=== PATIENT | male | born 1945 | race Caucasian/White ===

== ENCOUNTER 2016-06-22 16:29 | Emergency (ER) | payer BC, MEDICARE ==
[~2016-06-22] VITALS: Ht 167.6 cm; Wt 49.2 kg
[~2016-06-22 16:29] MED LIST: ADAL40KI INJ; ASPI325T PO; AZAT50TA21 PO; CALC-191 PO; HYDR-4246 PO; IRON18TA PO; MULT-806 PO; OMEP20CA10 PO; OSEL75CA PO; POTA20LI4 PO; SULF500T8 PO
--- OUTSIDE RECORDS SUMMARY | 2016-06-22 16:37 | XMS REPORT | Continuity of Care Document ---
Author Author [facility] Organization [facility] Address Unknown Phone Unavailable Allergies Active Description Code Type Severity Reaction Onset Reported/Identified Relationship to Patient Clinical Status Yes No Known Medication Allergies NKMA N/A N/A 09/17/2013 Medications Problems Procedures Results Test Result Range Comprehensive Metabolic Panel (CMP) - 09/24/15 10:25 Albumin 3.6 g/dL 3.4-4.8 Alkaline Phosphatase 58 U/L 40-150 ALT (SGPT) 13 U/L 0-55 Anion Gap 6 NA 3-20 AST (SGOT) 17 U/L 5-34 Bilirubin Total 0.3 mg/dL 0.2-1.2 BUN 15 mg/dL 8-26 Calcium 8.4 mg/dL 8.9-10.5 Chloride 105 mEq/L 99-111 CO2 29 mEq/L 23-31 Creatinine 0.97 mg/dL 0.72-1.25 Globulin 2.2 g/dL 1.8-4.0 Glucose 102 mg/dL 70-99 Potassium 3.9 mEq/L 3.5-5.2 Protein 5.8 g/dL 6.2-8.1 Sodium 140 mEq/L 135-144 eGFR - 09/24/15 10:25 eGFR >60 mL/min >60 CBC With Platelet and Differential - 09/24/15 10:25 Absolute Basophils 0.01 10*3 0.00-0.20 Absolute Eosinophils 0.01 10*3 0.00-0.50 Absolute Lymphocytes 1.40 10*3 0.80-3.30 Absolute Monocytes 0.87 10*3 0.30-1.00 Absolute Neutrophils 4.18 10*3 1.90-7.00 Basophils 0 % 0-2 Differential Scanned Slide NA Eosinophils 0 % 0-4 HCT 36.6 % 42.0-52.0 HGB 12.3 g/dL 14.0-18.0 Immature Granulocytes 1.1 % 0.0-1.0 Lymphocytes 21 % 20-46 Macrocytes Present NA MCH 36.4 pg 27.0-32.0 MCHC 33.6 g/dL 32.0-36.0 MCV 108.3 fL 82.0-99.0 Monocytes 13 % 4-11 MPV 9.6 fL 8.8-14.8 Neutrophils 64 % 51-75 Platelet Count 206 K/uL 150-400 RBC 3.38 10*6/uL 4.60-6.20 RDW 14.2 % 11.5-14.5 WBC 6.5 K/uL 4.8-10.8 CBC With Platelet and Differential - 05/07/16 05:41 HCT 35.6 % 42.0-52.0 HGB 11.7 g/dL 14.0-18.0 MCH 35.7 pg 27.0-32.0 MCHC 32.9 g/dL 32.0-36.0 MCV 108.5 fL 82.0-99.0 MPV 9.8 fL 9.4-12.3 Platelet Count 228 K/uL 150-400 RBC 3.28 10*6/uL 4.60-6.20 RDW 13.9 % 11.5-14.5 WBC 8.8 K/uL 4.8-10.8 Phosphorus - 05/07/16 05:41 Phosphorus 2.1 mg/dL 2.4-4.7 Magnesium - 05/07/16 05:41 Magnesium 1.8 mg/dL 1.8-2.5 Comprehensive Metabolic Panel (CMP) - 05/07/16 05:41 Albumin 3.0 g/dL 3.5-4.8 Alkaline Phosphatase 59 U/L 26-104 ALT (SGPT) 10 U/L 17-63 Anion Gap 6 NA 3-20 AST (SGOT) 18 U/L 15-41 Bilirubin Total 0.6 mg/dL 0.2-1.2 BUN 12 mg/dL 4-20 Calcium 8.3 mg/dL 8.6-10.0 Chloride 106 mEq/L 99-109 CO2 25 mEq/L 22-32 Creatinine 1.15 mg/dL 0.64-1.27 Globulin 3.2 g/dL 1.9-4.3 Glucose 126 mg/dL 70-100 Potassium 3.9 mEq/L 3.6-5.1 Protein 6.2 g/dL 6.1-7.9 Sodium 137 mEq/L 136-144 eGFR - 05/07/16 05:41 eGFR >60 NA >60 Encounters ACCT No. Visit Date/Time Discharge Status Pt. Type Provider Facility Loc./Unit Complaint [id number] 05/17/2016 14:31:00 2016 23:59:00 DIS Outpatient Husam Arriaza [facility] F/U - [place]OHNS [id number] 12/08/2015 13:51:00 2015 23:59:00 DIS Outpatient Tatyana Brower L [facility] 1 WEEK F/U [id number] 11/18/2015 13:58:00 2015 23:59:00 DIS Outpatient Husam Arriaza [facility] demond [id number] 09/24/2015 09:18:00 2015 23:59:00 DIS Outpatient Tariq Benitez [facility] nilson [id number] 06/05/2015 12:45:00 2015 23:59:00 DIS Outpatient Jason Zamora B [facility] 12 inj [id number] 05/08/2015 13:22:00 2015 23:59:00 DIS Outpatient Deleon, Vasu E [facility] vitamin B 12 inj [id number] 03/06/2015 12:47:00 2014 23:59:00 DIS Outpatient Deleon, Vasu E [facility] Vitamin B 12 inj [id number] 02/06/2015 12:48:00 2014 23:59:00 DIS Outpatient Deleon, Vasu E [facility] Vitamin B 12 inj [id number] 01/02/2015 12:47:00 2014 23:59:00 DIS Outpatient Deleon, Vasu E [facility] vitamin B 12 inj [id number] 12/09/2014 11:44:00 2014 23:59:00 DIS Outpatient Deleon, Vasu E [facility] Vitamin B 12 inj [id number] 11/07/2014 12:49:00 2014 23:59:00 DIS Outpatient Deleon, Vasu E [facility] Vitamin B 12 inj [id number] 11/05/2014 08:53:00 2014 23:59:00 DIS Outpatient Deleon, Vasu E [facility] ABDOMINAL SORENESS [id number] 10/29/2014 14:09:00 2014 23:59:00 DIS Outpatient Deleon, Vasu E [facility] ABDOMINAL PAIN AND DARK STOOLS [id number] 10/01/2014 12:49:00 2014 23:59:00 DIS Outpatient Deleon, Vasu E [facility] Vitamin B 12 inj [id number] 04/25/2014 12:47:00 2014 23:59:00 DIS Outpatient Deleon, Vasu E [facility] Vitamin B 12 inj [id number] 04/23/2014 14:12:00 2014 23:59:59 CLS Outpatient Simon Cassidy [facility] colonoscopy consult [id number] 04/01/2014 14:57:00 2013 23:59:00 DIS Outpatient Deleon, Vasu E [facility] Vitamin B 12 inj [id number] 02/26/2014 12:59:00 2013 23:59:00 DIS Outpatient Deleon, Vasu E [facility] From IDX: VITAMIN B 12 INJ [id number] 05/06/2016 19:12:00 Document Registration [id number] 11/28/2015 05:35:00 Document Registration [id number] 04/10/2015 13:07:00 ACT Outpatient Deleon, Vasu E [facility] Vitamin B 12 inj [id number] 03/17/2015 09:54:00 ACT Outpatient Deleon, Vasu E [facility] 3rd Reclast infusion [id number] 09/05/2014 15:26:00 Document Registration [id number] 08/01/2014 12:52:00 Document Registration [id number] 07/22/2014 12:48:00 Document Registration [id number] 07/04/2014 12:44:00 Document Registration [id number] 05/22/2014 10:03:00 Document Registration [id number] 03/07/2014 15:09:00 Document Registration
--- OUTSIDE RECORDS SUMMARY | 2016-06-22 16:37 | XMS REPORT | Continuity of Care Document ---
Author Author [facility] Organization [facility] Address Unknown Phone Unavailable Care Team Providers Care Military Professional Name Role Phone MADHAVI DIA DO Primary Care Physician [phone] Insurance Providers Guarantor Abimael Zeng Address [address] [place] [address] Email [email or web address] Payer Medicare Part A Only Policy Number [id number] Subscriber's Name Abimael Zeng Relationship 18 Self Effective Date 12 Payer [place] Other Policy Number [id number] Subscriber's Name Ninfa Zeng Relationship 01 Spouse Group Number [id number] Chief Complaint and Reason for Visit Chief Complaint Cough,Fever,Flu,URI Reason for Visit [id number] Problems Active Problems Medical Problem Onset Date Status exacerbation of Crohn's Unknown Acute Past Problems Medical Problem Onset Date Abdominal pain Unknown Influenza B Unknown Medications Current Home Medications Medication Dose Units Route Directions Days Qty Instructions Start Date Adalimumab (Humira) 40 Mg/0.8 Ml/Kit Syringe 40 Mg Injection Weekly 04/22/16 Aspirin 325 Mg Tablet 1 Tab Oral Daily 30 Tablet 06/08/16 Azathioprine 50 Mg Tablet 100 Mg Oral Daily 05/30/12 Calcium Carbonate/Vitamin D3 (Calcium + Vitamin D Tablet) 1 Each Tablet 1 Tab Oral Daily 04/22/16 Hydrocodone/Acetaminophen (Immaculata 5-325 Tablet) 5-325 Tablet 1 Tab Oral Every 4-6 Hours as needed for Pain 20 Tablet 03/20/16 Iron 18 Mg Tablet 06/08/16 Multivitamins (Multivitamin) 1 Tab Tablet 1 Tab Oral Daily Omeprazole 20 Mg Capsule.dr 20 Mg Oral Daily 03/20/16 Oseltamivir Phosphate (Tamiflu) 75 Mg Capsule 75 Mg Oral Twice A Day 5 Days [address] aVrghese Irby [facility] [address] [phone] 06/08/16 Potassium Chloride 20 Meq/15 Ml Liquid 20 Meq Oral Daily 03/20/16 Sulfasalazine 500 Mg Tablet 1,000 Mg Oral Twice A Day 04/22/16 Past Home Medications Medication Directions Ordered Status Adalimumab (Humira) 40 Mg/0.8 Ml/Kit Kit, 40 Mg Sub-Q 11/24/09 Discontinued Azathioprine 50 Mg Tablet, 50 Mg Oral Daily 11/24/09 Discontinued Ferrous Gluconate 225 ( 27 )Mg Tablet, 225 ( Oral Daily 11/24/09 Discontinued Fluoride Ion/Multivitamins (Multi Vitamins W/Fl 1 Mg Tab) 1 Mg Tab.chew, 1 Mg Oral Daily 11/24/09 Discontinued Omeprazole (Prilosec) 20 Mg Tablet.dr, 20 Mg Oral Daily 11/24/09 Discontinued Potassium Chloride (K-Dur) 20 Meq Tab.prt.sr, 20 Meq Oral 3 Tabs Daily Discontinued Prednisone 5 Mg Tablet, 35 Mg Oral Daily 05/30/12 Discontinued Prednisone 10 Mg Tablet, 10 Mg Oral Daily 11/24/09 Discontinued Prednisone 5 Mg/5 Ml Solution, 40 Mg Oral Daily 11/24/09 Discontinued Tpn , Intraven D-X12hrs 01/27/12 Discontinued Yeast Infection Med , 2 Tab Oral Daily 04/20/11 Discontinued Social History Social History Problem Response Recorded Date/Time Onset Date Status Chewing Tobacco Status No 09/14/2013 4:33am Not Applicable Not Applicable Hx Substance Use No 05/06/2016 3:59pm Not Applicable Not Applicable Hx Alcohol Use No 05/06/2016 3:59pm Not Applicable Not Applicable Has the pt used tobacco in the last 12 months No 12/16/2012 4:38am Not Applicable Not Applicable Tobacco Usage none 09/14/2013 5:11am Not Applicable Not Applicable Query Response Start Date Stop Date Smoking Status Never smoker Hospital Discharge Instructions No hospital discharge instructions. Plan of Care Discharge Date 06/08/16 4:53pm Disposition 01 DISCHARGED HOME, SELF-CARE Condition at Discharge Stable Instructions/Education Provided Influenza (ED) Prescriptions See Medication Section Referrals MADHAVI DIA DO Address: [address] [facility] [place] [phone] Functional Status No functional status results. Allergies, Adverse Reactions, Alerts No known allergies. Immunizations Query Response on File Recorded Date/Time Hx Influenza Vaccination Y JAN 2012 09/14/13 4:33am Hx Pneumococcal Vaccination Y 201009/14/13 4:33am Hx Influenza Vaccination Y JAN 2012 09/14/13 4:33am Influenza Vaccine Hx 201506/08/16 4:25pm Vital Signs Acute Vital Signs Vital Response Date/Time Temperature (Fahrenheit) 99.3 deg F (96.8 - 99.1) 06/08/2016 4:27pm Temperature (Calculated Celsius) 37.95386 degrees C (36.0 - 37.3) 06/08/2016 4:27pm Pulse Rate (adult) 115 bpm (60 - 100) 06/08/2016 4:27pm Respiratory Rate 18 breaths/min (10 - 20) 06/08/2016 4:27pm O2 Sat by Pulse Oximetry 96 % (90 - 100) 06/08/2016 4:27pm Blood Pressure 115/65 mm Hg 06/08/2016 4:27pm Height (Feet) 5 feet 05/06/2016 3:40pm Height (Inches) 66.00 inches 06/08/2016 4:27pm Weight (Kilograms) 49.200 kg 06/08/2016 4:27pm Body Mass Index (BMI) 17.0 06/08/2016 4:27pm Results Laboratory Results Test Name Result Units Flags Reference Collection Date/Time Result Date/ Time Comments White Blood Count 11.0 T/MM3 4.5-11.0 05/06/2016 4:06pm 05/06/2016 4: 31pm Red Blood Count 3.66 M/MM3 L 4.50-5.90 05/06/2016 4:06pm 05/06/2016 4: 31pm Hemoglobin 13.1 GM/DL L 13.5-17.5 05/06/2016 4:06pm 05/06/2016 4:31pm Hematocrit 39.0 % L 41-53 05/06/2016 4:06pm 05/06/2016 4:31pm Mean Corpuscular Volume 106.6 UM3 H 80-100 05/06/2016 4:06pm 05/06/2016 4:31pm Mean Corpuscular Hemoglobin 35.8 UUG H 26-34 05/06/2016 4:06pm 2016 4:31pm Mean Corpuscular Hemoglobin Concent 33.6 GM/DL 31-37 05/06/2016 4:06pm 05/06/2016 4:31pm RDW Standard Deviation 49.1 FL 36.9-50.2 05/06/2016 4:06pm 05/06/2016 4 :31pm Platelet Count 272 T/MM3 130-400 05/06/2016 4:06pm 05/06/2016 4:31pm Mean Platelet Volume 9.6 UM3 9.4-12.4 05/06/2016 4:06pm 05/06/2016 4: 31pm Neutrophils (%) (Auto) 78.0 % H 33-66 05/06/2016 4:06pm 05/06/2016 4: 31pm Lymphocytes (%) (Auto) 14.8 % L 23-45 05/06/2016 4:06pm 05/06/2016 4: 31pm Monocytes (%) (Auto) 6.4 % 0-9.0 05/06/2016 4:06pm 05/06/2016 4:31pm Eosinophils (%) (Auto) 0.1 % 0-4 05/06/2016 4:06pm 05/06/2016 4:31pm Basophils (%) (Auto) 0.2 % 0-2 05/06/2016 4:06pm 05/06/2016 4:31pm Immature Granulocyte % (Auto) 0.5 % 0.0-0.5 05/06/2016 4:06pm 2016 4:31pm Absolute Neutrophils (auto) 8.6 T/MM3 H 1.8-7.7 05/06/2016 4:06pm 2016 4:31pm Absolute Lymphocytes (auto) 1.6 T/MM3 1-4.8 05/06/2016 4:06pm 2016 4:31pm Absolute Monocytes (auto) 0.7 T/MM3 0-0.8 05/06/2016 4:06pm 05/06/2016 4:31pm Absolute Eosinophils (auto) 0.0 T/MM3 0-0.5 05/06/2016 4:06pm 2016 4:31pm Absolute Basophils (auto) 0.0 T/MM3 0-0.2 05/06/2016 4:06pm 05/06/2016 4:31pm Absolute Immature Granulocyte (auto 0.05 T/MM3 H 0.00-0.03 05/06/2016 4: 06pm 05/06/2016 4:31pm Icterus Index < 2 0-7 05/06/2016 4:06pm 05/06/2016 4:35pm Chemistry Specimen Hemolysis 23 0-25 05/06/2016 4:06pm 05/06/2016 4: 35pm 0-25: Specimen Exhibited No Hemolysis. Turbidity < 20 0-20 05/06/2016 4:06pm 05/06/2016 4:35pm Sodium Level 141 MEQ/L 134-144 05/06/2016 4:06pm 05/06/2016 4:35pm Potassium Level 4.0 MEQ/L 3.6-5 05/06/2016 4:06pm 05/06/2016 4:35pm Chloride Level 106 MEQ/L 98-107 05/06/2016 4:06pm 05/06/2016 4:35pm Carbon Dioxide Level 27 MEQ/L 22-30 05/06/2016 4:06pm 05/06/2016 4: 35pm Anion Gap 8 MEQ/L 5-15 05/06/2016 4:06pm 05/06/2016 4:35pm Blood Urea Nitrogen 15.0 MG/DL 9-20 05/06/2016 4:06pm 05/06/2016 4: 35pm Creatinine 1.0 MG/DL 0.8-1.5 05/06/2016 4:06pm 05/06/2016 4:35pm BUN/Creatinine Ratio 15 RATIO 6-26 05/06/2016 4:06pm 05/06/2016 4:35pm Glomerular Filtration Rate Calc 74 05/06/2016 4:06pm 05/06/2016 4: 35pm Glucose Level 115 MG/DL H 75-110 05/06/2016 4:06pm 05/06/2016 4:35pm Calculated Osmolality 273 MOSM/KG 261-280 05/06/2016 4:06pm 05/06/2016 4:35pm Calcium Level 9.3 MG/DL 8.4-10.2 05/06/2016 4:06pm 05/06/2016 4:35pm Total Bilirubin 0.60 MG/DL 0.20-1.30 05/06/2016 4:06pm 05/06/2016 4: 35pm Alkaline Phosphatase 72 U/L 38-126 05/06/2016 4:06pm 05/06/2016 4:35pm Total Protein 7.5 G/DL 6.3-8.2 05/06/2016 4:06pm 05/06/2016 4:35pm Albumin 3.9 G/DL 3.5-5.0 05/06/2016 4:06pm 05/06/2016 4:35pm Globulin 3.6 G/DL 2.4-3.6 05/06/2016 4:06pm 05/06/2016 4:35pm Albumin/Globulin Ratio 1.1 RATIO 1.1-2.2 05/06/2016 4:06pm 05/06/2016 4 :35pm Aspartate Amino Transf (AST/SGOT) 25 U/L 17-59 05/06/2016 4:06pm 2016 4:35pm Alanine Aminotransferase (ALT/SGPT) 24 U/L 21-72 05/06/2016 4:06pm 06/2016 4:35pm Lipase 262 U/L 23-300 05/06/2016 4:06pm 05/06/2016 4:35pm Urine Collection Type CLEANCATCH-MIDSTREAM 05/06/2016 5:11pm 2016 5:22pm Urine Color YELLOW YELLOW 05/06/2016 5:11pm 05/06/2016 5:22pm Urine Turbidity CLEAR CLEAR 05/06/2016 5:11pm 05/06/2016 5:22pm Urine Specific [place] >=1.030 H 1.015-1.025 05/06/2016 5:11pm 2016 5:22pm Urine pH 5.5 5.0-8.0 05/06/2016 5:11pm 05/06/2016 5:22pm Urine Leukocyte Esterase NEGATIVE NEGATIVE 05/06/2016 5:11pm 2016 5:22pm Urine Nitrite NEGATIVE NEGATIVE 05/06/2016 5:11pm 05/06/2016 5:22pm Urine Protein NEGATIVE NEGATIVE 05/06/2016 5:11pm 05/06/2016 5:22pm Urine Glucose (UA) NEGATIVE NEGATIVE 05/06/2016 5:11pm 05/06/2016 5: 22pm Urine Ketones NEGATIVE NEGATIVE 05/06/2016 5:11pm 05/06/2016 5:22pm Urine Urobilinogen 0.2 EU/DL NORMAL 05/06/2016 5:11pm 05/06/2016 5: 22pm Urine Bilirubin NEGATIVE NEGATIVE 05/06/2016 5:11pm 05/06/2016 5: 22pm Urine Blood NEGATIVE NEGATIVE 05/06/2016 5:11pm 05/06/2016 5:22pm Urinalysis Comment MICROSCOPIC NOT IND. 05/06/2016 5:11pm 2016 5:22pm Influenza Type A Antigen NEGATIVE NEGATIVE 06/08/2016 4:41pm 2016 4:45pm Negative for Flu A protein antigen. Assay sensitivity is 90%. Influenza Type B Antigen POSITIVE H NEGATIVE 06/08/2016 4:41pm 2016 4:45pm If clinical symptoms do not support these results, consider ordering the "Respiratory Panel, PCR". Procedures Procedure Status Date Provider(s) X-ray exam of abdomen Completed 03/20/16 Comprehen metabolic panel Completed 03/20/16 Complete cbc w/auto diff wbc Completed 03/20/16 Hydrate iv infusion add-on Completed 03/20/16 Ther/proph/diag inj iv push Completed 03/20/16 Tx/pro/dx inj new drug addon Completed 03/20/16 Emergency dept visit Completed 03/20/16 [id number]"INJECTION, ONDANSETRON HYDROCHLORIDE, PER 1 MG" Completed 03/20/16 PREDNISONE, 10 MG TAB Completed 03/20/16 X-ray exam of abdomen Completed 04/22/16 Ct abd & pelv w/contrast Completed 04/22/16 Comprehen metabolic panel Completed 04/22/16 Assay of lipase Completed 04/22/16 Complete cbc w/auto diff wbc Completed 04/22/16 Hydrate iv infusion add-on Completed 04/22/16 Ther/proph/diag inj iv push Completed 04/22/16 Tx/pro/dx inj same drug stand grinder Completed 04/22/16 Emergency dept visit Completed 04/22/16 [id number]"INFUSION, NORMAL SALINE SOLUTION , 1000 CC" Completed 04/22/16 [id number]"INFUSION, NORMAL SALINE SOLUTION , 250 CC" Completed 04/22/16 [id number]"LOW OSMOLAR CONTRAST MATERIAL, 300-399 MG/ML IODINE C Completed Comprehen metabolic panel Completed 05/06/16 Urinalysis auto w/o scope Completed 05/06/16 Assay of lipase Completed 05/06/16 Complete cbc w/auto diff wbc Completed 05/06/16 Electrocardiogram tracing Completed 05/06/16 Hydrate iv infusion add-on Completed 05/06/16 Ther/proph/diag inj iv push Completed 05/06/16 Tx/pro/dx inj new drug addon Completed 05/06/16 Emergency dept visit Completed 05/06/16 [id number]"INJECTION, ONDANSETRON HYDROCHLORIDE, PER 1 MG" Completed 05/06/16 [id number]"INFUSION, NORMAL SALINE SOLUTION , 1000 CC" Completed 05/06/16 Encounters Encounter Location Arrival/Admit Date Discharge/Depart Date Attending Provider Departed Emergency Room [facility] 06/08/16 4:14pm 06/08/16 4: 53pm FERNANDO MARTINEZ APRN Departed Emergency Room [facility] 05/06/16 3:39pm 05/06/16 6: 36pm DONNIE MELCHOR DO Departed Emergency Room [facility] 04/22/16 2:28pm 04/22/16 7: 00pm KAROLINA DOSS MD Departed Emergency Room [facility] 03/20/16 8:42pm 03/20/16 11: 32pm MADHAVI CHEN MD Recent Diagnosis
--- OUTSIDE RECORDS SUMMARY | 2016-06-22 16:38 | XMS REPORT | Continuity of Care Document ---
Author Author [facility] Organization [facility] Address Unknown Phone Unavailable Support Name Relationship Address Phone JUDITH DALTON MD Caregiver [address] [place] [address] DR YANG [place] [phone] NINFA ZENG Next Of Kin [address] [place], [place] [id number] Insurance Providers Payer Name Policy Number Subscriber Name Relationship [employer] Other [id number] Ninfa Zeng 01 Spouse Medicare Part A Only [id number] Abimael Zeng 20 Self Problems Medical Problems Problem Onset Date Status exacerbation of Crohn's Unknown Active Medications Medication Dose Route Sig Days/Qty Instructions Order Date Discontinued Date Status Omeprazole 20 Mg PO DAILY 11/24/09 01/27/12 Discontinued Azathioprine 50 Mg PO DAILY 11/24/09 01/27/12 Discontinued Prednisone 10 Mg PO DAILY 2 Qty 11/24/09 01/27/12 Discontinued Prednisone 40 Mg PO DAILY 11/24/09 01/27/12 Discontinued Sulfasalazine 1,000 Mg PO TWICE A DAY 11/24/09 Active Ferrous Gluconate 225 ( PO DAILY 11/24/09 05/30/12 Discontinued Calcium Carbonate/Vitamin D3 1 Udtab PO DAILY 11/24/09 Active Fluoride Ion/Multivitamins 1 Mg PO DAILY 11/24/09 05/06/12 Discontinued Adalimumab 40 Mg SQ 11/24/09 01/27/12 Discontinued Potassium Chloride 20 Meq PO 3 TABS DAILY 04/20/11 01/27/12 Discontinued [Yeast Infection Med] 2 Tab PO DAILY 04/20/11 01/27/12 Discontinued Ascorbate Calcium 1,000 Mg PO DAILY 01/27/12 Active [Tpn] IV [id number] 01/27/12 05/06/12 Discontinued Ferrous Gluconate 240 ( PO DAILY 01/30/12 Active Potassium Chloride 20 Meq PO DAILY 01/30/12 Active Multivitamins 1 Tab PO DAILY 05/06/12 Active Azathioprine 100 Mg PO DAILY 05/30/12 Active Adalimumab 20 Mg SQ [id number] 05/30/12 Active Prednisone 35 Mg PO DAILY 05/30/12 11/14/12 Discontinued Hydrocodone Bit/Acetaminophen 1 Tab PO NEEDED 05/30/12 Active Cyanocobalamin (Vitamin B-12) 40 Mg IM MONTHLY 11/14/12 Active Prednisone 60 Mg PO DAILY AM AFTER MEAL 30 Qty TAKE DAILY EACH MORNING Active Hydrocodone Bit/Acetaminophen 1-2 Tab PO Q6H/0300,0900,1500,2100 PRN PAIN 20 Qty 09/14/13 Active Ondansetron 4 Mg PO FOUR TIMES DAILY PRN NAUSEA &/OR VOMITING 6 Qty Active Social History Social History Problem Response Recorded Date/Time Smoking Status Never smoker 09/14/2013 4:33am Chewing Tobacco Status No 09/14/2013 4:33am Hx Substance Use No 09/14/2013 4:33am Hx Alcohol Use No 09/14/2013 4:33am Has the pt used tobacco in the last 12 months No 12/16/2012 4:38am Query Response Start Date Stop Date Smoking Status Former smoker Hospital Discharge Instructions No hospital discharge instructions. Plan of Care No plan of care. Functional Status No functional status results. Allergies, Adverse Reactions, Alerts Allergen Type Severity Reaction Status Last Updated No Known Allergies Active 09/14/13 Immunizations Name Given Type Hx Influenza Vaccination Y JAN 2012 Historical Hx Pneumococcal Vaccination Y 2010 Historical Hx Influenza Vaccination Y JAN 2012 Historical Vital Signs No known vital signs results. Results Test Source Date Result Interp. Ref. Range Comments Activated Partial Thromboplast Time May 06, 2012 4:09pm 49.0 SEC H 24-36 Alanine Aminotransferase (ALT/SGPT) January 20, 2014 4:02pm 24 U/L N 21- 72 Albumin January 20, 2014 4:02pm 4.4 G/DL N 3.5-5.0 Albumin/Globulin Ratio January 20, 2014 4:02pm 1.3 RATIO N 1.1-2.2 Alkaline Phosphatase January 20, 2014 4:02pm 90 U/L N 38-126 Amylase Level January 20, 2014 4:02pm 66 U/L N 30-110 Anion Gap January 20, 2014 4:02pm 19 MEQ/L H 5-15 Anisocytosis April 05, 2011 8:25am 2+ - Arterial Blood Base Excess April 06, 2011 5:20am 4.7 MMOL/L H -2.0- 2.0 Arterial Blood HCO3 April 06, 2011 5:20am 29 MEQ/L H 22-26 Arterial Blood Oxygen Saturation April 06, 2011 5:20am 99.0 % H 95.0- 98.0 Arterial Blood Partial Pressure CO2 April 06, 2011 5:20am 42 MMHG N 34 -45 Arterial Blood Total CO2 April 06, 2011 5:20am 30.5 MEQ/L H 23-27 Arterial Blood pH April 06, 2011 5:20am 7.450 N 7.350-7.450 Aspartate Amino Transf (AST/SGOT) January 20, 2014 4:02pm 25 U/L N 17- 59 BUN/Creatinine Ratio January 20, 2014 4:02pm 15 RATIO N 6-26 Band Neutrophils # May 31, 2012 4:20am 0.3 T/MM3 - Band Neutrophils % May 31, 2012 4:20am 4.0 % N 0-6 Basophils # (Auto) September 14, 2013 4:45am 0.0 T/MM3 N 0-0.2 Basophils # (Manual) February 27, 2012 10:10am 0.1 T/MM3 N 0-0.2 Basophils % (Manual) February 27, 2012 10:10am 1.0 % N 0-2 Basophils (%) (Auto) September 14, 2013 4:45am 0.2 % N 0-2 Blood Gas Tidal Volume April 05, 2011 10:27am 600 ML N 0-1200 Blood Gas Vent Rate April 05, 2011 10:27am 8 N 0-30 Blood Urea Nitrogen January 20, 2014 4:02pm 20.0 MG/DL N 9-20 C-Reactive Protein January 20, 2014 4:02pm 57.2 MG/L H 0-9 Calcium Level January 20, 2014 4:02pm 10.1 MG/DL N 8.4-10.2 Calculated Osmolality January 20, 2014 4:02pm 282 MOSM/KG H 261-280 Carbon Dioxide Level January 20, 2014 4:02pm 31 MEQ/L H 22-30 Chloride Level January 20, 2014 4:02pm 95 MEQ/L L 98-107 Conjugated Bilirubin May 06, 2012 4:09pm 0.00 MG/DL N 0.00-0.30 Creatinine January 20, 2014 4:02pm 1.3 MG/DL N 0.8-1.5 Eosinophils # (Auto) September 14, 2013 4:45am 0.0 T/MM3 N 0-0.5 Eosinophils # (Manual) March 12, 2012 9:45am 0.1 T/MM3 N 0-0.5 Eosinophils % (Manual) March 12, 2012 9:45am 2.0 % N 0-4 Eosinophils (%) (Auto) September 14, 2013 4:45am 0.3 % N 0-4 Erythrocyte Sedimentation Rate January 20, 2014 4:02pm 57 MM/HR H 0-15 Globulin January 20, 2014 4:02pm 3.3 G/DL N 2.4-3.6 Glucose Level January 20, 2014 4:02pm 105 MG/DL N 75-110 Hematocrit September 14, 2013 4:45am 39.0 % L 41-53 Hemoglobin September 14, 2013 4:45am 13.1 GM/DL L 13.5-17.5 Lipase January 20, 2014 4:02pm 183 U/L N 23-300 Lymphocytes # (Auto) September 14, 2013 4:45am 1.0 T/MM3 N 1-4.8 Lymphocytes # (Manual) May 31, 2012 4:20am 0.3 T/MM3 L 1-4.8 Lymphocytes % (Manual) May 31, 2012 4:20am 4.0 % L 23-45 Lymphocytes (%) (Auto) September 14, 2013 4:45am 9.7 % L 23-45 Macrocytosis April 05, 2011 8:25am 1+ - Magnesium Level August 01, 2011 9:30am 1.9 MG/DL N 1.6-2.3 COMMENT ON BLOOD DRAWN THIS AM Mean Corpuscular Hemoglobin September 14, 2013 4:45am 35.1 UUG H 26-34 Mean Corpuscular Hemoglobin Concent September 14, 2013 4:45am 33.6 GM/DL N 31 -37 Mean Corpuscular Volume September 14, 2013 4:45am 104.6 UM3 H 80-100 Mean Platelet Volume September 14, 2013 4:45am 9.9 UM3 N 9.4-12.4 Metamyelocytes # February 06, 2012 10:25am 0.1 T/MM3 - Metamyelocytes % February 06, 2012 10:25am 2.0 % H 0-0 Monocytes # (Auto) September 14, 2013 4:45am 0.7 T/MM3 N 0-0.8 Monocytes # (Manual) May 31, 2012 4:20am 0.3 T/MM3 N 0-0.8 Monocytes % (Manual) May 31, 2012 4:20am 4.0 % N 0-9.0 Monocytes (%) (Auto) September 14, 2013 4:45am 6.8 % N 0-9.0 Myelocytes # February 27, 2012 10:10am 0.1 T/MM3 - Myelocytes % February 27, 2012 10:10am 1.0 % H 0-0 Neutrophils # (Auto) September 14, 2013 4:45am 8.2 T/MM3 H 1.8-7.7 Neutrophils # (Manual) May 31, 2012 4:20am 6.2 T/MM3 N 1.8-7.7 Neutrophils % (Manual) May 31, 2012 4:20am 88.0 % H 33-66 Neutrophils (%) (Auto) September 14, 2013 4:45am 82.7 % H 33-66 Nucleated Red Blood Cells May 31, 2012 4:20am 1 - Phosphorus Level August 01, 2011 9:30am 4.5 MG/DL N 2.5-4.5 COMMENT ON BLOOD DRAWN THIS AM Platelet Count September 14, 2013 4:45am 191 T/MM3 N 130-400 Polychromasia April 05, 2011 8:25am 1+ - Potassium Level January 20, 2014 4:02pm 3.8 MEQ/L N 3.6-5 Prealbumin April 25, 2011 11:00am 57.7 MG/DL H 17.6-36.[address] DALTON [id number] Prothromb Time International Ratio May 06, 2012 4:09pm 0.96 N 0.86- 1.10 THERAPUTIC RANGE=2.00-3.00 FOR ANTI-THROMBOSIS THERAPUTIC RANGE=2.50- 3.50 FOR IMPLANTED VALVE RDW Standard Deviation September 14, 2013 4:45am 50.2 FL N 36.9-50.2 Random Vancomycin Level July 18, 2011 10:45am 8.54 UG/ML N 0-40 Red Blood Count September 14, 2013 4:45am 3.73 M/MM3 L 4.50-5.90 Sodium Level January 20, 2014 4:02pm 145 MEQ/L H 134-144 Thyroid Stimulating Hormone (TSH) March 16, 2011 11:00am 3.98 MIU/L N 0.47-4.68 Total Bilirubin January 20, 2014 4:02pm 0.80 MG/DL N 0.20-1.30 Total Creatine Kinase July 04, 2007 9:25am 30 U/L L 55-170 STAT -- PT WAITING FOR RESULTS Total Protein January 20, 2014 4:02pm 7.7 G/DL N 6.3-8.2 Troponin I May 06, 2012 4:09pm < 0.012 ng/ml 0-0.12 Unconjugated Bilirubin May 06, 2012 4:09pm 0.10 MG/DL N 0.00-1.10 Urine Bacteria May 30, 2012 3:05pm None seen - Has specimen been collected/obtained? Y Urine Bilirubin December 16, 2012 4:00am Negative - Has specimen been collected/obtained? Y Urine Blood December 16, 2012 4:00am Negative - Has specimen been collected/obtained? Y Urine Collection Type December 16, 2012 4:00am Voided-not cc-midstr - Has specimen been collected/obtained? Y Urine Color December 16, 2012 4:00am Yellow - Has specimen been collected/obtained? Y Urine Culture Indicated May 30, 2012 3:05pm Cult not indicated - Has specimen been collected/obtained? Y Urine Glucose (UA) December 16, 2012 4:00am Negative - Has specimen been collected/obtained? Y Urine Ketones December 16, 2012 4:00am Trace H - Has specimen been collected/obtained? Y Urine Leukocyte Esterase December 16, 2012 4:00am Negative - Has specimen been collected/obtained? Y Urine Mucus May 30, 2012 3:05pm Present - Has specimen been collected/obtained? Y Urine Nitrite December 16, 2012 4:00am Negative - Has specimen been collected/obtained? Y Urine Protein December 16, 2012 4:00am Negative - Has specimen been collected/obtained? Y Urine RBC May 30, 2012 3:05pm None seen /HPF - Has specimen been collected/obtained? Y Urine Specific [place] December 16, 2012 4:00am 1.015 - Has specimen been collected/obtained? Y Urine Turbidity December 16, 2012 4:00am Clear - Has specimen been collected/obtained? Y Urine Urobilinogen December 16, 2012 4:00am Normal EU/DL - Has specimen been collected/obtained? Y Urine WBC May 30, 2012 3:05pm 0-1 /HPF - Has specimen been collected/obtained? Y Urine pH December 16, 2012 4:00am 5.0 - Has specimen been collected/ obtained? Y Vancomycin Level Trough August 01, 2011 9:30am 10.35 UG/ML L 15-20 White Blood Count September 14, 2013 4:45am 9.9 T/MM3 N 4.5-11.0 West Nile Virus IgG/IgM Antibody November 20, 2007 4:13pm Send out - Chemistry Specimen Hemolysis January 20, 2014 4:02pm < 15 0-25 0-25: No Hemolysis.26-70: Slight Hemolysis - can falsely elevate K and Urine Protein. 71-285: Moderate Hemolysis - can falsely elevate K, Troponin I, CA 19-9, PTH, CSF GLucose, and Urine Protein, and can falsely decrease Phenytoin. 286-999: Gross Hemolysis - can falsely elevate K, Troponin I, CA 19-9, PTH, CSF Glucose, and Urine Protine, and can falsely decrease Phenytoin. Recommend specimen recollection. Oxygen Delivery Method (LAB) April 06, 2011 5:20am Endotrach tube, % - Glucometer February 03, 2012 12:01pm 158 mg/dL H 75-110 Lab Scanned Report January 20, 2014 8:29pm LAB TEST FORM REQUEST [id number] - Platelet Evaluation (Diff) May 02, 2011 12:50pm Few - Turbidity January 20, 2014 4:02pm < 20 0-20 Reactive Lymphocytes % May 30, 2012 2:45pm 1.0 % H 0-0 Glomerular Filtration Rate Calc January 20, 2014 4:02pm 55 - Reactive Lymphocytes # May 30, 2012 2:45pm 0.1 T/MM3 H 0-0 Immature Granulocyte # (Auto) September 14, 2013 4:45am 0.03 T/MM3 N 0.00- 0.03 Immature Granulocyte % (Auto) September 14, 2013 4:45am 0.3 % N 0.0-0.5 Arterial Blood pO2 at Patient Temp April 06, 2011 5:20am 155 MMHG H 80 -100 Icterus Index January 20, 2014 4:02pm < 2 0-7 Blood Culture Blood April 11, 2011 9:50am NO GROWTH AFTER 5 DAYS Gram Stain Surgery Site Tissue-Abdomen April 05, 2011 10:39am Procedures No known history of procedures. Encounters Encounter Location Date/Time Registered Clinic [facility] 01/20/14 4:55pm Registered [facility] 01/20/14 4:14pm
[2016-06-22 16:52] VITALS: Ht 167.6 cm; Wt 49.2 kg
[2016-06-22] MEDS ORDERED: CYAN10006 INJ (17:12)
[2016-06-22] MEDS ORDERED: PRED5TAB PO (17:12)
[2016-06-22] MEDS ORDERED: FOLI0.4T2 PO (17:13)
[2016-06-22] MEDS ORDERED: ASCO1TAB PO (17:13)
--- NOTE | 2016-06-22 18:41 | ERPDOC ---
Departure Disposition Decision Date: Jun 22, 2016 Disposition Decision Time: 20:02 Disposition: 01 DISCHARGED HOME, SELF-CARE Impression Impression Impression: Primary Impression: exacerbation of Crohn's Severity: Severe Condition: Improved Seen By: Physician only Referrals: MADHAVI DIA DO (PCP/Family) Patient Instructions: Crohn Disease (ED) Problems/Meds/Labs Reviewed?: Yes Medications reviewed and manag: Yes Additional Instructions: Compazine 10 mg, one tablet up to 4 times daily as needed for nausea/vomiting/ cramps Prednisone 20 mg, 3 tablets daily for 4 days Follow up care ordered?: Yes Mental Status: Alert Scripts Prochlorperazine Maleate (Compazine) 10 Mg Tablet 10 MG PO QID for n/v/cramps, #30 TAB 0 Refills Prov: MADHAVI CHEN MD 06/22/16 HPI - Abdominal Pain General Chief Complaint: Abdominal Pain Stated Complaint: SEVERE ABD PAIN Time Seen by Provider: 18:30 Source: patient History/Exam Limitations: no limitations HPI - Abdominal Pain Initial Comments Patient began having vomiting with severe abdominal pain, day, consistent with his prior episodes of Crohn's disease. Patient sees Dr. Arriaza in [place], and normally receives IV fluids, something for nausea, morphine, and steroids. She was recently diagnosed with influenza B on June 08, and well since then until today. Occurred At: home Onset: Rapid Duration: 12-24 hrs Quality: cramping, sharpness, stabbing Location: RLQ, LLQ, generalized abdomen Associated Symptoms: nausea/vomiting, DENIES: back pain, chest pain, diaphoresis, fatigue, fever/chills, headache, heartburn, rash, shortness of breath, swelling/mass in abdomen, syncope, weakness Hx of Similar Symptoms: Yes Allergies: Coded Allergies: No Known Allergies (Verified , 06/22/16) Past History Past Medical History ENMT: allergies GI: crohn's, other Surgical History General: appendix, colonoscopy, hernia, other, tonsils Joint: shoulder Vaccines Hx Influenza Vaccination: Yes (JAN 2012) Hx Pneumococcal Vaccination: Yes (2010) Social History Smoking Status: Never smoker Does patient use chewing tobac: No Second Hand Exposure: No Substance Use Type: does not use Alcohol Intake: none Record Review Pertinent history updated: Yes Review of Systems Constitutional Constitutional: DENIES: appetite decrease, appetite increase, chills, dizziness , fever, weakness ENMT Ears: DENIES: pain Hearing: DENIES: hearing loss, tinnitus Balance: DENIES: vertigo Mouth/Throat: DENIES: change in swallowing, change in voice, hoarsness, painful swallowing, sore throat Cardiovascular Cardiac: DENIES: chest pain, dyspnea on exertion Rhythm/Rate: DENIES: irregular beat, palpitations, tachycardia Vascular: DENIES: pedal edema Pulmonary Respiratory: DENIES: cough, dyspnea, pleuritic chest pain GI Upper Abdomen: nausea, pain, vomiting, DENIES: dysphagia, food intolerances, heartburn/indigestion, hematemesis Lower Abdomen: pain, DENIES: blood in stool, santos-colored stools, constipation , diarrhea, melena, painful BM General: DENIES: burning, dysuria, frequency, pain, urgency Musculoskeletal General: DENIES: cramps, joint pain, joint swelling, pain, weakness Integumentary Skin: DENIES: rash, sores Neurological General: DENIES: headache, numbness, tingling, vertigo, weakness Psychiatric Psychiatric: DENIES: anxiety, depression, nervousness Physical Exam General General Nourishment: well nourished, well developed, appears stated age, thin General Body Habitus: well groomed Vitals and Pain First Documented Vital Signs Date Time Temp Pulse Resp B/P Pulse Ox O2 Delivery O2 Flow Rate FiO2 06/22/16 16:52 97.8 88 16 121/71 97 Room Air Weight: Kilograms: 49.200 Height (feet): 5 Height (inches): 6.00 Triage Pain Scale: Normal Exams: Head: Normocephalic w/o trauma Eyes: Pupils are PERRLA w/ EOMI, No scleral icterus, irritation, or foreign bodies noted ENMT: No facial trauma, nasal exudates, pharyngeal erythema, or exudates are noted Neck: Full range of motion, without adenopathy, JVD, bruits or thyromegaly Chest/Resp: Clear all fine, with good airflow, and symmetry bilaterally CV: Regular rate and rhythm, without murmur or gallop, Pulses 2+ all extremities, capillary refill, <2 seconds all ext., no pedal edema noted Lymphatic: No lymphadenopathy, or lymphedema noted Musculoskeletal: No tenderness, or deformity noted, good range of motion, all extremities Integumentary: No rashes, hives, or bruising noted, hair and nails, without abnormality Neurologic: Patient is alert, and oriented, cranial nerves, motor/sensory/ cerebellar, exams w/o gross deficits, to observation Psychiatric: Patient exhibits, appropriate attention, emotion and affect Abdomen (brief) Abdominal Brief: FOUND: soft, tender (distant to absent diffuse lower abdominal tenderness, no guarding no rebounding), NOT FOUND: bowel normo active x4 Progress Results/Orders Orders Procedure Category Date Status Time Iv Lock (Ed Only) EDM 06/22/16 Transmitted 18:37 Cbc W/Auto LAB 06/22/16 Complete Diff-Reflex Manual Cmp - Comprehensive LAB 06/22/16 Complete Metabolic Lipase LAB 06/22/16 Complete Morphine Sulfate PHA 06/22/16 Complete (Morphine) 18:45 Prochlorperazine PHA 06/22/16 Complete (Compazine) 18:45 Normal Saline (Normal PHA 06/22/16 Complete Saline Iv) 18:45 Methylprednisolone PHA 06/22/16 Complete Sod Succ (Solu-Medrol 18:45 Ketorolac (Toradol) PHA 06/22/16 Complete 18:45 Kub W/Upright RAD 06/22/16 Taken Ketorolac (Toradol) PHA 06/22/16 Complete 18:45 Lab Results Laboratory Tests Test 06/22/16 18:51 White Blood Count 12.1T/MM3 Red Blood Count 3.75M/MM3 Hemoglobin 13.3GM/DL Hematocrit 40.4% Mean Corpuscular Volume 107.7UM3 Mean Corpuscular Hemoglobin 35.5UUG Mean Corpuscular Hemoglobin Concent 32.9GM/DL RDW Standard Deviation 48.8FL Platelet Count 225T/MM3 Mean Platelet Volume 9.3UM3 Immature Granulocyte % (Auto) 0.4% Neutrophils (%) (Auto) 78.6% Lymphocytes (%) (Auto) 13.5% Monocytes (%) (Auto) 7.4% Eosinophils (%) (Auto) 0.0% Basophils (%) (Auto) 0.1% Absolute Immature Granulocyte (auto 0.05T/MM3 Absolute Neutrophils (auto) 9.5T/MM3 Absolute Lymphocytes (auto) 1.6T/MM3 Absolute Monocytes (auto) 0.9T/MM3 Absolute Eosinophils (auto) 0.0T/MM3 Absolute Basophils (auto) 0.0T/MM3 Turbidity < 20 Sodium Level 143MEQ/L Potassium Level 3.9MEQ/L Chloride Level 107MEQ/L Carbon Dioxide Level 24MEQ/L Anion Gap 12MEQ/L Blood Urea Nitrogen 20.0MG/DL Creatinine 1.0MG/DL Glomerular Filtration Rate Calc 74 BUN/Creatinine Ratio 20RATIO Glucose Level 130MG/DL Calculated Osmolality 280MOSM/KG Calcium Level 9.5MG/DL Total Bilirubin 0.50MG/DL Icterus Index < 2 Aspartate Amino Transf (AST/SGOT) 22U/L Alanine Aminotransferase (ALT/SGPT) 27U/L Alkaline Phosphatase 77U/L Total Protein 7.6G/DL Albumin 4.0G/DL Globulin 3.6G/DL Albumin/Globulin Ratio 1.1RATIO Lipase 198U/L Chemistry Specimen Hemolysis < 15 Medications Current ED Medications Morphine Sulfate (Morphine) 4 mg O ONCE IV Last administered on 06/22/16 19: 01; Start 06/22/16 at 18:45; Stop 06/22/16 at 18:46; Status DC Prochlorperazine Edisylate 10 mg 10 mg O ONCE IV Last administered on 18:55; Start 06/22/16 at 18:45; Stop 06/22/16 at 18:46; Status DC Sodium Chloride (Normal Saline IV) 1,000 ml @ 0 mls/hr Q0M ONCE IV Last administered on 06/22/16 18:53; Start 06/22/16 at 18:45; Stop 06/22/16 at 18:46 ; Status DC Methylprednisolone Sodium Succinate (Solu-Medrol) 125 mg O ONCE IV Last administered on 06/22/16 18:58; Start 06/22/16 at 18:45; Stop 06/22/16 at 18:46 ; Status DC Ketorolac Tromethamine (Toradol) 30 mg O ONCE IV Last administered on 18:59; Start 06/22/16 at 18:45; Stop 06/22/16 at 18:46; Status DC Ketorolac Tromethamine (Toradol) 30 mg O ONCE IV ; Start 06/22/16 at 18:45; Stop 06/22/16 at 18:46; Status DC Progress Progress Patient given morphine 4 mg IV, Compazine 10 mg IV, Toradol 30 mg IV, 1 L normal saline IV fluid bolus, and otherwise, Solu-Medrol 125 mg IV - to complete relief CBC - essentially normal, unchanged from prior studies CMP/L - normal Patient sent home with prescription and pack for Compazine 10 mg up to 4 times daily, and prescription for prednisone 60 mg for 4 days. MADHAVI CHEN MD Jun 22, 2016 18:41
--- OUTSIDE RECORDS SUMMARY | 2016-06-22 18:42 | XMS REPORT | Continuity of Care Document ---
Author Author [facility] Organization [facility] Address Unknown Phone Unavailable Allergies Active Description [...] Status Pt. Type Provider Facility Loc./Unit Complaint [id number] 05/17/2016 14:31:00 2016 23:59:00 DIS Outpatient Husam Arriaza [facility] F/U - [place] [id number] 12/08/2015 13:51:00 2015 23:59:00 DIS Outpatient Tatyana Brower L [facility] 1 WEEK F/U [id number] 11/18/2015 13:58:00 2015 23:59:00 DIS Outpatient Husam Arriaza [facility] demond [id number] 09/24/2015 09:18:00 2015 23:59:00 DIS Outpatient Tariq Benitez [facility] nilson [id number] 06/05/2015 12:45:00 2015 23:59:00 DIS Outpatient Jason Zamora B [facility] Vitamin B 12 inj [id number] 05/08/2015 13:22:00 2015 23:59:00 DIS Outpatient Deleon, Vasu E [facility] vitamin B 12 inj [id number] 03/06/2015 12:47:00 2014 23:59:00 DIS Outpatient Deleon, Vasu E [facility] Vitamin B 12 inj [id number] 02/06/2015 12:48:00 2014 23:59:00 DIS Outpatient Deleon, Vasu E [facility] Vitamin B 12 inj [id number] 01/02/2015 12:47:00 2014 23:59:00 DIS Outpatient Deleon, Vasu E [facility] vitamin B 12 inj [id number] 12/09/2014 11:44:00 2014 23:59:00 DIS Outpatient Deleon, Vasu E [facility] Vitamin B 12 inj [id number] 11/07/2014 12:49:00 2014 23:59:00 DIS Outpatient Deleon, Vasu E [facility] Vitamin B 12 inj [id number] 11/05/2014 08:53:00 2014 23:59:00 DIS Outpatient Deleon, Vasu E [facility] ABDOMINAL SORENESS [id number] 10/29/2014 14:09:00 2014 23:59:00 DIS Outpatient Deleon, Vasu E [facility] ABDOMINAL PAIN AND DARK STOOLS [id number] 10/01/2014 12:49:00 2014 23:59:00 DIS Outpatient Deleon, Vasu E [facility] Vitamin B 12 inj [id number] 04/25/2014 12:47:00 2014 23:59:00 DIS Outpatient Deleon, Vasu E [facility] Vitamin B 12 inj [id number] 04/23/2014 14:12:00 2014 23:59:59 CLS Outpatient Simon Cassidy [facility] colonoscopy consult [id number] 04/01/2014 14:57:00 2013 23:59:00 DIS Outpatient Deleon, Vasu E [facility] Vitamin B 12 inj [id number] 02/26/2014 12:59:00 2013 23:59:00 DIS Outpatient Deleon, Vasu E [facility] From IDX: VITAMIN B 12 INJ [id number] 05/06/2016 19:12:00 Document Registration [id number] 11/28/2015 05:35:00 Document Registration [id number] 04/10/2015 13:07:00 ACT Outpatient Deleon, Vasu E [facility] Vitamin B 12 inj [id number] 03/17/2015 09:54:00 ACT Outpatient Deleon, Vasu E [facility] 3rd Reclast infusion [id number] 09/05/2014 15:26:00 Document Registration [id number] 08/01/2014 12:52:00 Document Registration [id number] 07/22/2014 12:48:00 Document Registration [id number] 07/04/2014 12:44:00 Document Registration [id number] 05/22/2014 10:03:00 Document Registration [id number] 03/07/2014 15:09:00 Document Registration
--- OUTSIDE RECORDS SUMMARY | 2016-06-22 18:43 | XMS REPORT | Continuity of Care Document ---
Author Author [facility] Organization [facility] Address Unknown Phone Unavailable Support Name Relationship Address Phone JUDITH DALTON MD Caregiver [address] [place] [address] DR YANG [place] [phone] NINFA ZENG Next Of Kin [address] [place], [place] [id number] Insurance Providers Payer Name Policy Number Subscriber Name Relationship Blue Cross Other [id number] Ninfa Zeng 01 Spouse Medicare Part A Only [id number] Abimael Zeng 20 Self Problems Medical Problems [...] DAILY 05/30/12 Active Adalimumab 20 Mg SQ [id number] 05/30/12 Active Prednisone 35 Mg PO DAILY [...] H 17.6-36.[address] DALTON [id number] Prothromb Time International Ratio May 06, 2012 [...] Has specimen been collected/obtained? Y Urine Specific [place] December 16, 2012 4:00am 1.015 - Has [...] 20, 2014 8:29pm LAB TEST FORM REQUEST [id number] - Platelet Evaluation (Diff) May 02, 2011 [...] procedures. Encounters Encounter Location Date/Time Registered Clinic [facility] 01/20/14 4:55pm Registered [facility] 01/20/14 4:14pm
[2016-06-22] MEDS ORDERED: NORMAL SALINE 1,000 ML IV ONE (18:45)
[2016-06-22] MEDS ORDERED: PROCHLORPERAZINE 10mg/2ml INJECTION IV ONE (18:45)
[2016-06-22] MEDS ORDERED: MORPHINE SULFATE 4 MG SYRINGE IV ONE (18:45)
[2016-06-22] MEDS ORDERED: KETOROLAC 30mg/ml INJECTION IV ONE ×2 (18:45)
[2016-06-22 18:58] LABS: BASOPHILS % (AUTO) 0.1 % (0-2); HCT - HEMATOCRIT 40.4 % (41-53); HGB - HEMOGLOBIN 13.3 GM/DL (13.5-17.5); IMMATURE GRANULOCYTE # (AUTO) 0.05 T/MM3 (0.00-0.03); IMMATURE GRANULOCYTE % (AUTO) 0.4 % (0.0-0.5); LYMPHOCYTES # (AUTO) 1.6 T/MM3 (1-4.8); LYMPHOCYTES % (AUTO) 13.5 % (23-45); MEAN CORPUSCULAR HGB 35.5 UUG (26-34); MEAN CORPUSCULAR HGB CONC(MCHC 32.9 GM/DL (31-37); MEAN CORPUSCULAR VOLUME 107.7 UM3 (80-100); MEAN PLATELET VOLUME 9.3 UM3 (9.4-12.4); MONOCYTES # (AUTO) 0.9 T/MM3 (0-0.8); MONOCYTES % (AUTO) 7.4 % (0-9.0); NEUTROPHILS #(AUTO)-ABSOLUTE 9.5 T/MM3 (1.8-7.7); NEUTROPHILS % (AUTO) 78.6 % (33-66); RED BLOOD COUNT 3.75 M/MM3 (4.50-5.90); WBC - WHITE BLOOD COUNT 12.1 T/MM3 (4.5-11.0)
[2016-06-22 19:08] LABS: ALBUMIN/GLOBULIN RATIO 1.1 RATIO (1.1-2.2); ALKALINE PHOSPHATASE 77 U/L (38-126); ALT (SGPT) 27 U/L (21-72); ANION GAP 12 MEQ/L (5-15); AST (SGOT) 22 U/L (17-59); BUN/CREATININE RATIO 20 RATIO (6-26); CALCIUM 9.5 MG/DL (8.4-10.2); CHLORIDE 107 MEQ/L (98-107); CO2 - CARBON DIOXIDE 24 MEQ/L (22-30); GLOMERULAR FILTRATION RATE 74; GLUCOSE 130 MG/DL (75-110); LIPASE 198 U/L (23-300); POTASSIUM 3.9 MEQ/L (3.6-5); SODIUM 143 MEQ/L (134-144); TOTAL PROTEIN 7.6 G/DL (6.3-8.2)
--- NOTE | 2016-06-22 20:00 | NUR ---
PROVIDER DR CHEN IN TO SEE PATIENT.
[2016-06-22] MEDS ORDERED: PROC-14 PO (20:04)
[2016-06-22] MEDS ORDERED: PRED20TA PO (20:05)
[2016-06-22 20:13] VITALS: BP 107/59; PULSE 81; RESP 16; TEMP 97.8; O2SAT 98
--- NOTE | 2016-06-23 08:24 | DI ---
Indication: ITS.REASON: absent bowel sounds, vomiting, SBO hx PROCEDURE: KUB W/UPRIGHT: Encounter: Initial Comparison:April 22, 2016 Findings: The visualized lung bases are clear. There is no free air on the upright view. The bowel gas pattern is nonobstructive and nonspecific. Gas is seen in nondilated small and large bowel to the level of the rectum. Moderate stool is seen throughout the colon. Radiodensities probably related to ingested medications in the colon. Surgical sutures also seen in the area of the cecum. Impression: Nonobstructive nonspecific bowel gas pattern. .
== END 2016-06-22 20:13 | disposition home or self-care (01) ==
LOC: ED 16:29
DX: K50.90 Crohn's disease, unspecified, without complications (principal)
CPT/HCPCS: 74020; 80053; 83690; 85025; 96374; 96375; 99284; J0780; J1885; J2930; J7030

== ENCOUNTER 2016-06-23 11:25 | Inpatient (IN) | payer BC, MEDICARE ==
[~2016-06-23] VITALS: Ht 167.6 cm; Wt 49.7 kg
[~2016-06-23 11:25] MED LIST changes: +ASCO1TAB PO; +CYAN10006 INJ; +FOLI0.4T2 PO; -OSEL75CA PO; +PRED20TA PO; +PRED5TAB PO; +PROC-14 PO
--- OUTSIDE RECORDS SUMMARY | 2016-06-23 11:31 | XMS REPORT | Continuity of Care Document ---
Author Author [facility] Organization [facility] Address Unknown Phone Unavailable Support Name Relationship Address Phone MADHAVI CHEN MD Caregiver [address] [place] [address] Unavailable MADHAVI DIA DO Caregiver [address] [place] [address] Unavailable NINFA ZNEG Next Of Kin [address] [place] [address] Insurance Providers Guarantor Abimael Zeng Address [address] [place] [address] Email [email or web address] Payer Medicare Part A Only Policy Number [id number] Subscriber's Name Abimael Zeng Relationship 18 Self Effective Date 12 Payer Collections [employer] Other Policy Number [id number] Subscriber's Name Ninfa Zeng Relationship 01 Spouse Group Number [id number] Advance Directives Directive Response Recorded Date/Time Advanced Directives Type None 06/22/16 6:29pm Chief Complaint and Reason for Visit Chief Complaint Abdominal Pain Reason for Visit ANH-XHJB-tzzhksfajlxa of Crohn's Problems Active Problems Medical Problem Onset Date Status exacerbation of Crohn's Unknown Acute Past Problems Medical Problem Onset Date Abdominal pain Unknown Influenza B Unknown Medications Current Home Medications Medication Dose Units Route Directions Days Qty Instructions Start Date Adalimumab (Humira) 40 Mg/0.8 Ml/Kit Syringe 40 Mg Injection Weekly 04/22/16 Ascorbate Calcium/Bioflavonoid (Liz-C 1,000 Mg Tablet) 1 Each Tablet 500 Mg Oral Daily 06/22/16 Aspirin 325 Mg Tablet 325 Mg Oral Daily 06/08/16 Azathioprine 50 Mg Tablet 100 Mg Oral Daily 05/30/12 Calcium Carbonate/Vitamin D3 (Calcium + Vitamin D Tablet) 1 Each Tablet 1 Tab Oral Daily 04/22/16 Cyanocobalamin (Cyanocobalamin Injection) 1,000 Mcg/Ml Vial 1,000 Mcg Injection Every 2 Weeks 06/22/16 Folic Acid 0.4 Mg Tablet 0.4 Mg Oral Daily 06/22/16 Hydrocodone/Acetaminophen ([place] 5-325 Tablet) 5-325 Tablet 1 Tab Oral Every 4-6 Hours as needed for Pain 20 Tablet 03/20/16 Iron 18 Mg Tablet 06/08/16 Multivitamins (Multivitamin) 1 Tab Tablet 1 Tab Oral Daily Omeprazole 20 Mg Capsule.dr 20 Mg Oral Before Breakfast 03/20/16 Potassium Chloride 20 Meq/15 Ml Liquid 20 Meq Oral Daily 03/20/16 Prednisone 5 Mg Tablet 10 Mg Oral Daily 06/22/16 Prednisone 20 Mg Tablet 60 Mg Oral Daily 12 Tablet Take 1 tablet, by mouth, 2 times a day with meals. 06/22/16 Prochlorperazine Maleate (Compazine) 10 Mg Tablet 10 Mg Oral Four Times Daily for N/V/Cramps 30 Tablet 06/22/16 Sulfasalazine 500 Mg Tablet 1,000 Mg Oral [...] discharge instructions. Plan of Care Discharge Date 06/22/16 8:13pm Disposition 01 DISCHARGED HOME, SELF-CARE Condition at Discharge Improved Instructions/Education Provided Crohn Disease (ED) Prescriptions See Medication Section Referrals MADHAVI DIA DO Address: [address] [place] [address] [place] [phone] Additional Instructions/Education Compazine 10 mg, one tablet up to 4 times daily as needed for nausea/vomiting/cramps Prednisone 20 mg, 3 tablets daily for 4 days Care Plan and Goals Physician Care Plan Problem: Exacerbation of Crohn's disease Goal: Follow up with primary care provider Instructions: Take medications and follow care plan as discussed/written Compazine 10 mg, one tablet up to 4 times daily as needed for nausea/vomiting/cramps Prednisone 20 mg, 3 tablets daily for 4 days Functional Status No functional status results. Allergies, Adverse Reactions, Alerts No known allergies. Immunizations Query Response on File Recorded Date/Time Hx Influenza Vaccination Y JAN 2012 09/14/13 4:33am Hx Pneumococcal Vaccination Y 201009/14/13 4:33am Hx Influenza Vaccination Y JAN 2012 09/14/13 4:33am Influenza Vaccine Hx 201506/08/16 4:25pm Vital Signs Acute Vital Signs Vital Response Date/Time Temperature (Fahrenheit) 97.8 deg F (96.8 - 99.1) 06/22/2016 4:52pm Temperature (Calculated Celsius) 36.11203 degrees C (36.0 - 37.3) 06/22/2016 4:52pm Pulse Rate (adult) 81 bpm (60 - 100) 06/22/2016 8:09pm Respiratory Rate 16 breaths/min (10 - 20) 06/22/2016 8:09pm O2 Sat by Pulse Oximetry 98 % (90 - 100) 06/22/2016 8:09pm Blood Pressure 107/59 mm Hg 06/22/2016 8:09pm Height (Feet) 5 feet 06/22/2016 4:52pm Height (Inches) 6.00 inches 06/22/2016 4:52pm Weight (Kilograms) 49.200 kg 06/22/2016 4:52pm Body Mass Index (BMI) 17.0 06/22/2016 4:52pm Results Laboratory Results Test Name Result Units Flags Reference Collection Date/Time Result Date/ Time Comments Urine Collection Type CLEANCATCH-MIDSTREAM 05/06/2016 5:11pm 2016 5:22pm Urine Color YELLOW YELLOW 05/06/2016 5:11pm 05/06/2016 5:22pm Urine Turbidity CLEAR CLEAR 05/06/2016 5:11pm 05/06/2016 5:22pm Urine Specific [place] >=1.030 H 1.015-1.025 05/06/2016 5:11pm 2016 5:22pm [...] results, consider ordering the "Respiratory Panel, PCR". White Blood Count 12.1 T/MM3 H 4.5-11.0 06/22/2016 6:51pm 06/22/2016 6: 58pm Red Blood Count 3.75 M/MM3 L 4.50-5.90 06/22/2016 6:51pm 06/22/2016 6: 58pm Hemoglobin 13.3 GM/DL L 13.5-17.5 06/22/2016 6:51pm 06/22/2016 6:58pm Hematocrit 40.4 % L 41-53 06/22/2016 6:51pm 06/22/2016 6:58pm Mean Corpuscular Volume 107.7 UM3 H 80-100 06/22/2016 6:51pm 06/22/2016 6:58pm Mean Corpuscular Hemoglobin 35.5 UUG H 26-34 06/22/2016 6:51pm 2016 6:58pm Mean Corpuscular Hemoglobin Concent 32.9 GM/DL 31-37 06/22/2016 6:51pm 06/22/2016 6:58pm RDW Standard Deviation 48.8 FL 36.9-50.2 06/22/2016 6:51pm 06/22/2016 6 :58pm Platelet Count 225 T/MM3 130-400 06/22/2016 6:51pm 06/22/2016 6:58pm Mean Platelet Volume 9.3 UM3 L 9.4-12.4 06/22/2016 6:51pm 06/22/2016 6: 58pm Neutrophils (%) (Auto) 78.6 % H 33-66 06/22/2016 6:51pm 06/22/2016 6: 58pm Lymphocytes (%) (Auto) 13.5 % L 23-45 06/22/2016 6:51pm 06/22/2016 6: 58pm Monocytes (%) (Auto) 7.4 % 0-9.0 06/22/2016 6:51pm 06/22/2016 6:58pm Eosinophils (%) (Auto) 0.0 % 0-4 06/22/2016 6:51pm 06/22/2016 6:58pm Basophils (%) (Auto) 0.1 % 0-2 06/22/2016 6:51pm 06/22/2016 6:58pm Immature Granulocyte % (Auto) 0.4 % 0.0-0.5 06/22/2016 6:51pm 2016 6:58pm Absolute Neutrophils (auto) 9.5 T/MM3 H 1.8-7.7 06/22/2016 6:51pm 2016 6:58pm Absolute Lymphocytes (auto) 1.6 T/MM3 1-4.8 06/22/2016 6:51pm 2016 6:58pm Absolute Monocytes (auto) 0.9 T/MM3 H 0-0.8 06/22/2016 6:51pm 2016 6:58pm Absolute Eosinophils (auto) 0.0 T/MM3 0-0.5 06/22/2016 6:51pm 2016 6:58pm Absolute Basophils (auto) 0.0 T/MM3 0-0.2 06/22/2016 6:51pm 06/22/2016 6:58pm Absolute Immature Granulocyte (auto 0.05 T/MM3 H 0.00-0.03 06/22/2016 6: 51pm 06/22/2016 6:58pm Icterus Index < 2 0-7 06/22/2016 6:51pm 06/22/2016 7:08pm Chemistry Specimen Hemolysis < 15 0-25 06/22/2016 6:51pm 06/22/2016 7 :08pm 0-25: Specimen Exhibited No Hemolysis. Turbidity < 20 0-20 06/22/2016 6:51pm 06/22/2016 7:08pm Sodium Level 143 MEQ/L 134-144 06/22/2016 6:51pm 06/22/2016 7:08pm Potassium Level 3.9 MEQ/L 3.6-5 06/22/2016 6:51pm 06/22/2016 7:08pm Chloride Level 107 MEQ/L 98-107 06/22/2016 6:51pm 06/22/2016 7:08pm Carbon Dioxide Level 24 MEQ/L 22-30 06/22/2016 6:51pm 06/22/2016 7: 08pm Anion Gap 12 MEQ/L 5-15 06/22/2016 6:51pm 06/22/2016 7:08pm Blood Urea Nitrogen 20.0 MG/DL 9-06/22/2016 6:51pm 06/22/2016 7: 08pm Creatinine 1.0 MG/DL 0.8-1.5 06/22/2016 6:51pm 06/22/2016 7:08pm BUN/Creatinine Ratio 20 RATIO 6-26 06/22/2016 6:51pm 06/22/2016 7:08pm Glomerular Filtration Rate Calc 74 06/22/2016 6:51pm 06/22/2016 7: 08pm Glucose Level 130 MG/DL H 75-110 06/22/2016 6:51pm 06/22/2016 7:08pm Calculated Osmolality 280 MOSM/KG 261-280 06/22/2016 6:51pm 06/22/2016 7:08pm Calcium Level 9.5 MG/DL 8.4-10.2 06/22/2016 6:51pm 06/22/2016 7:08pm Total Bilirubin 0.50 MG/DL 0.20-1.30 06/22/2016 6:51pm 06/22/2016 7: 08pm Alkaline Phosphatase 77 U/L 38-126 06/22/2016 6:51pm 06/22/2016 7:08pm Total Protein 7.6 G/DL 6.3-8.2 06/22/2016 6:51pm 06/22/2016 7:08pm Albumin 4.0 G/DL 3.5-5.0 06/22/2016 6:51pm 06/22/2016 7:08pm Globulin 3.6 G/DL 2.4-3.6 06/22/2016 6:51pm 06/22/2016 7:08pm Albumin/Globulin Ratio 1.1 RATIO 1.1-2.2 06/22/2016 6:51pm 06/22/2016 7 :08pm Aspartate Amino Transf (AST/SGOT) 22 U/L 17-59 06/22/2016 6:51pm 2016 7:08pm Alanine Aminotransferase (ALT/SGPT) 27 U/L 21-72 06/22/2016 6:51pm 7:08pm Lipase 198 U/L 23-300 06/22/2016 6:51pm 06/22/2016 7:08pm Procedures Procedure Status Date Provider(s) X-ray exam of abdomen Completed 04/22/16 Ct abd & pelv w/contrast Completed 04/22/16 Comprehen metabolic panel Completed 04/22/16 Assay of lipase Completed 04/22/16 Complete cbc w/auto diff wbc Completed 04/22/16 Hydrate iv infusion add-on Completed 04/22/16 Ther/proph/diag inj iv push Completed 04/22/16 Tx/pro/dx inj same drug paleontology teacher Completed 04/22/16 Emergency dept visit Completed 04/22/16 [id number]"INFUSION, NORMAL SALINE SOLUTION , 1000 CC" Completed 04/22/16 701582"INFUSION, NORMAL SALINE SOLUTION , 250 CC" Completed 04/22/16 735584"LOW OSMOLAR CONTRAST MATERIAL, 300-399 MG/ML IODINE C Completed Comprehen metabolic panel Completed 05/06/16 Urinalysis auto w/o scope Completed 05/06/16 Assay of lipase Completed 05/06/16 Complete cbc w/auto diff wbc Completed 05/06/16 Electrocardiogram tracing Completed 05/06/16 Hydrate iv infusion add-on Completed 05/06/16 Ther/proph/diag inj iv push Completed 05/06/16 Tx/pro/dx inj new drug addon Completed 05/06/16 Emergency dept visit Completed 05/06/16 008867"INJECTION, ONDANSETRON HYDROCHLORIDE, PER 1 MG" Completed 05/06/16 687504"INFUSION, NORMAL SALINE SOLUTION , 1000 CC" Completed 05/06/16 Encounters Encounter Location Arrival/Admit Date Discharge/Depart Date Attending Provider Departed Emergency Room [facility] 06/22/16 4:29pm 06/22/16 8: 13pm MADHAVI CHEN MD Departed Emergency Room [facility] 06/08/16 4:14pm 06/08/16 4: 53pm FERNANDO MARTINEZ APRN Departed Emergency Room [facility] 05/06/16 3:39pm 05/06/16 6: 36pm DONNIE MELCHOR DO Departed Emergency Room [facility] 04/22/16 2:28pm 04/22/16 7: 00pm KAROLINA DOSS MD Recent Diagnosis
--- OUTSIDE RECORDS SUMMARY | 2016-06-23 11:31 | XMS REPORT | Continuity of Care Document ---
Author Author [facility] Organization [facility] Address Unknown Phone Unavailable Allergies Active [...] Status Pt. Type Provider Facility Loc./Unit Complaint [id number] 05/17/2016 14:31:00 2016 23:59:00 DIS Outpatient Husam Arriaza Via [facility] F/U - CROHNS [id number] 12/08/2015 13:51:00 2015 23:59:00 DIS Outpatient Tatyana Brower L [facility] 1 WEEK F/U [id number] 11/18/2015 13:58:00 2015 23:59:00 DIS Outpatient Husam Arriaza Via [facility] demond [id number] 09/24/2015 09:18:00 2015 23:59:00 DIS Outpatient Tariq Benitez [facility] nilson [id number] 06/05/2015 12:45:00 2015 23:59:00 DIS Outpatient Jason Zamora B [facility] B 12 inj [id number] 05/08/2015 13:22:00 2015 23:59:00 DIS Outpatient Deleon, Vasu E [facility] vitamin B 12 inj [id number] 03/06/2015 12:47:00 2014 23:59:00 DIS Outpatient Deleon, Vasu E [facility] Vitamin B 12 inj [id number] 02/06/2015 12:48:00 2014 23:59:00 DIS Outpatient Deleon, Vasu E [facility] Vitamin B 12 inj [id number] 01/02/2015 12:47:00 2014 23:59:00 DIS Outpatient Deleon, Vasu E [facility] vitamin B 12 inj [id number] 12/09/2014 11:44:00 2014 23:59:00 DIS Outpatient Deleon, Vasu E [facility] Vitamin B 12 inj [id number] 11/07/2014 12:49:00 2014 23:59:00 DIS Outpatient Deleon, Vasu E [facility] Vitamin B 12 inj [id number] 11/05/2014 08:53:00 2014 23:59:00 DIS Outpatient Deleon, Vasu E [facility] ABDOMINAL SORENESS [id number] 10/29/2014 14:09:00 2014 23:59:00 DIS Outpatient Deleon, Vasu E [facility] ABDOMINAL PAIN AND DARK STOOLS [id number] 10/01/2014 12:49:00 2014 23:59:00 DIS Outpatient Deleon, Vasu E [facility] Vitamin B 12 inj [id number] 04/25/2014 12:47:00 2014 23:59:00 DIS Outpatient Deleon, Vasu E [facility] Vitamin B 12 inj [id number] 04/23/2014 14:12:00 2014 23:59:59 CLS Outpatient Simon Cassidy Via [facility] colonoscopy consult [id number] 04/01/2014 14:57:00 2013 23:59:00 DIS Outpatient Deleon, Vasu E [facility] Vitamin B 12 inj [id number] 02/26/2014 12:59:00 2013 23:59:00 DIS Outpatient Deleon, Vasu E Via [facility] From IDX: VITAMIN B 12 INJ [id number] 05/06/2016 19:12:00 Document Registration [id number] 11/28/2015 05:35:00 Document Registration [id number] 04/10/2015 13:07:00 ACT Outpatient Deleon, Vasu E [facility] Vitamin B 12 inj [id number] 03/17/2015 09:54:00 ACT Outpatient Deleon, Vasu E [facility] 3rd Reclast infusion [id number] 09/05/2014 15:26:00 Document Registration [id number] 08/01/2014 12:52:00 Document Registration [id number] 07/22/2014 12:48:00 Document Registration [id number] 07/04/2014 12:44:00 Document Registration [id number] 05/22/2014 10:03:00 Document Registration [id number] 03/07/2014 15:09:00 Document Registration
--- OUTSIDE RECORDS SUMMARY | 2016-06-23 11:34 | XMS REPORT | Continuity of Care Document ---
Author Author [facility] Organization [facility] Address Unknown Phone Unavailable Support Name Relationship Address Phone JUDITH DALTON MD Caregiver [address] [place] [address] DR YANG [place] [phone] NINFA ZENG Next Of Kin [address] [place], [place] [address] Insurance Providers Payer Name Policy Number Subscriber Name Relationship Blue Cross Other [id number] Ninfa Zeng 01 Spouse Medicare Part A Only [id number] Abimael Zeng 20 Self Problems Medical Problems [...] DAILY 05/30/12 Active Adalimumab 20 Mg SQ [id number] 05/30/12 Active Prednisone 35 Mg PO DAILY [...] H 17.6-36.[address] DALTON [id number] Prothromb Time International Ratio May 06, 2012 [...] Has specimen been collected/obtained? Y Urine Specific [place] December 16, 2012 4:00am 1.015 - Has [...] 20, 2014 8:29pm LAB TEST FORM REQUEST [id number] - Platelet Evaluation (Diff) May 02, 2011 [...] procedures. Encounters Encounter Location Date/Time Registered Clinic [facility] 01/20/14 4:55pm Registered [facility] 01/20/14 4:14pm
--- NOTE | 2016-06-23 12:14 | NUR ---
PROVIDER DR MELCHOR IN TO SEE PATIENT.
[2016-06-23 12:15] LABS: BASOPHILS % (AUTO) 0.2 % (0-2); HCT - HEMATOCRIT 38.1 % (41-53); HGB - HEMOGLOBIN 12.7 GM/DL (13.5-17.5); IMMATURE GRANULOCYTE # (AUTO) 0.05 T/MM3 (0.00-0.03); IMMATURE GRANULOCYTE % (AUTO) 0.5 % (0.0-0.5); LYMPHOCYTES # (AUTO) 1.1 T/MM3 (1-4.8); MEAN CORPUSCULAR HGB 35.8 UUG (26-34); MEAN CORPUSCULAR HGB CONC(MCHC 33.3 GM/DL (31-37); MEAN CORPUSCULAR VOLUME 107.3 UM3 (80-100); MEAN PLATELET VOLUME 9.6 UM3 (9.4-12.4); MONOCYTES # (AUTO) 0.9 T/MM3 (0-0.8); MONOCYTES % (AUTO) 9.5 % (0-9.0); NEUTROPHILS #(AUTO)-ABSOLUTE 7.7 T/MM3 (1.8-7.7); NEUTROPHILS % (AUTO) 78.8 % (33-66); RED BLOOD COUNT 3.55 M/MM3 (4.50-5.90); WBC - WHITE BLOOD COUNT 9.8 T/MM3 (4.5-11.0)
[2016-06-23 12:21] LABS: BLOOD, URINE NEGATIVE (NEGATIVE); COLOR,URINE YELLOW (YELLOW); LEUKOCYTE ESTERASE ,URINE NEGATIVE (NEGATIVE); NITRITE,URINE NEGATIVE (NEGATIVE); UROBILINOGEN,URINE 0.2 EU/DL (NORMAL)
[2016-06-23] MEDS ORDERED: MORPHINE SULFATE 4 MG SYRINGE IV ONE (12:30)
[2016-06-23] MEDS ORDERED: NORMAL SALINE 500 ML IV ONE (12:30)
[2016-06-23] MEDS ORDERED: ONDANSETRON 4mg/2ml INJECTION IV ONE (12:30)
[2016-06-23 12:31] LABS: ALBUMIN 3.7 G/DL (3.5-5.0); ALBUMIN/GLOBULIN RATIO 1.2 RATIO (1.1-2.2); ALKALINE PHOSPHATASE 62 U/L (38-126); ALT (SGPT) 24 U/L (21-72); ANION GAP 10 MEQ/L (5-15); AST (SGOT) 22 U/L (17-59); BUN/CREATININE RATIO 27 RATIO (6-26); CALCIUM 8.9 MG/DL (8.4-10.2); CHLORIDE 109 MEQ/L (98-107); CO2 - CARBON DIOXIDE 25 MEQ/L (22-30); GLOMERULAR FILTRATION RATE 74; GLUCOSE 109 MG/DL (75-110); LIPASE 127 U/L (23-300); POTASSIUM 4.2 MEQ/L (3.6-5); SODIUM 144 MEQ/L (134-144); TOTAL PROTEIN 6.9 G/DL (6.3-8.2)
[2016-06-23] MEDS ORDERED: IOHEXOL 300 MG/ML 75ml INJECTION ONE (12:54)
[2016-06-23] MEDS ORDERED: SALINE FLUSH 10ml SYRINGE ONE (12:54)
[2016-06-23] MEDS ORDERED: NORMAL SALINE 100 ML ONE (12:54)
--- NOTE | 2016-06-23 12:56 | NUR ---
TO CT PER CART.
--- OUTSIDE RECORDS SUMMARY | 2016-06-23 13:02 | XMS REPORT | Continuity of Care Document ---
Author Author [facility] Organization [facility] Address Unknown Phone Unavailable Allergies [...] Status Pt. Type Provider Facility Loc./Unit Complaint [id number] 05/17/2016 14:31:00 2016 23:59:00 DIS Outpatient Husam Arriaza [facility] F/U - CROHNS [id number] 12/08/2015 13:51:00 2015 23:59:00 DIS Outpatient Tatyana Brower L [facility] 1 WEEK F/U [id number] 11/18/2015 13:58:00 2015 23:59:00 DIS Outpatient Husam Arriaza [facility]ond [id number] 09/24/2015 09:18:00 2015 23:59:00 DIS Outpatient Tariq Benitez [facility] nilson [id number] 06/05/2015 12:45:00 2015 23:59:00 DIS Outpatient Jason Zamora B [facility] Vitamin B 12 inj [id number] 05/08/2015 13:22:00 2015 23:59:00 DIS Outpatient Deleon, Vasu E [facility] vitamin B 12 inj [id number] 03/06/2015 12:47:00 2014 23:59:00 DIS Outpatient Deleon, Vasu E [facility] Vitamin B 12 inj [id number] 02/06/2015 12:48:00 2014 23:59:00 DIS Outpatient Deleon, Vasu E [facility] Vitamin B 12 inj [id number] 01/02/2015 12:47:00 2014 23:59:00 DIS Outpatient Deleon, Vasu E [facility] vitamin B 12 inj [id number] 12/09/2014 11:44:00 2014 23:59:00 DIS Outpatient Deleon, Vasu E [facility] Vitamin B 12 inj [id number] 11/07/2014 12:49:00 2014 23:59:00 DIS Outpatient Deleon, Vasu E [facility] Vitamin B 12 inj [id number] 11/05/2014 08:53:00 2014 23:59:00 DIS Outpatient Deleon, Vasu E [facility] ABDOMINAL SORENESS [id number] 10/29/2014 14:09:00 2014 23:59:00 DIS Outpatient Deleon, Vasu E [facility] ABDOMINAL PAIN AND DARK STOOLS [id number] 10/01/2014 12:49:00 2014 23:59:00 DIS Outpatient Deleon, Vasu E [facility] Vitamin B 12 inj [id number] 04/25/2014 12:47:00 2014 23:59:00 DIS Outpatient Deleon, Vasu E [facility] Vitamin B 12 inj [id number] 04/23/2014 14:12:00 2014 23:59:59 CLS Outpatient Simon Cassidy [facility] colonoscopy consult [id number] 04/01/2014 14:57:00 2013 23:59:00 DIS Outpatient Deleon, Vasu E [facility] Vitamin B 12 inj [id number] 02/26/2014 12:59:00 2013 23:59:00 DIS Outpatient Deleon, Vasu E [facility] From IDX: VITAMIN B 12 INJ [id number] 05/06/2016 19:12:00 Document Registration [id number] 11/28/2015 05:35:00 Document Registration [id number] 04/10/2015 13:07:00 ACT Outpatient Deleon, Vasu E [facility] Vitamin B 12 inj [id number] 03/17/2015 09:54:00 ACT Outpatient Deleon, Vasu E [facility] 3rd Reclast infusion [id number] 09/05/2014 15:26:00 Document Registration [id number] 08/01/2014 12:52:00 Document Registration [id number] 07/22/2014 12:48:00 Document Registration [id number] 07/04/2014 12:44:00 Document Registration [id number] 05/22/2014 10:03:00 Document Registration [id number] 03/07/2014 15:09:00 Document Registration
--- OUTSIDE RECORDS SUMMARY | 2016-06-23 13:04 | XMS REPORT | Continuity of Care Document ---
Author Author [facility] Organization [facility] Address Unknown Phone Unavailable Support Name Relationship Address Phone JUDITH DALTON MD Caregiver [address] [place] [address] DR YANG [place] [phone] NINFA ZENG Next Of Kin [address] [place], [place] [address] Insurance Providers Payer Name Policy Number Subscriber Name Relationship [employer] Other [id number] Ninfa Zeng 01 Spouse Medicare Part A Only [id number] Abimael Zeng 20 Self Problems Medical Problems [...] DAILY 05/30/12 Active Adalimumab 20 Mg SQ [id number] 05/30/12 Active Prednisone 35 Mg PO DAILY [...] H 17.6-36.[address] DALTON [id number] Prothromb Time International Ratio May 06, 2012 [...] Has specimen been collected/obtained? Y Urine Specific [place] December 16, 2012 4:00am 1.015 - Has [...] 20, 2014 8:29pm LAB TEST FORM REQUEST [id number] - Platelet Evaluation (Diff) May 02, 2011 [...] procedures. Encounters Encounter Location Date/Time Registered Clinic [facility] 01/20/14 4:55pm Registered [facility] 01/20/14 4:14pm
--- NOTE | 2016-06-23 13:12 | NUR ---
BACK FROM CT
--- NOTE | 2016-06-23 13:27 | ERPDOC ---
Departure Disposition Decision Date: Jun 23, 2016 Disposition Decision Time: 14:00 Disposition: 02 TO [facility] Impression Impression Impression: Primary Impression: Small bowel obstruction Severity: Moderate Condition: Improved Seen By: Physician only Referrals: MADHAVI DIA DO (Family) Problems/Meds/Labs Reviewed?: Yes Medications reviewed and manag: Yes Follow up care ordered?: Yes Mental Status: Alert, Oriented HPI - Abdominal Pain General Chief Complaint: Abdominal Pain Stated Complaint: BLOCKAGE DUE TO KROHNS Time Seen by Provider: 11:53 Source: patient History/Exam Limitations: no limitations HPI - Abdominal Pain Initial Comments 70-year-old male presents to the emergency department with a chief complaint of abdominal discomfort. Patient has a history of Crohn's disease and has had multiple bowel obstructions in the past secondary to his Crohn's. Patient notes that his pain began 1 day ago. He was seen in the emergency department yesterday and discharged home in improved condition. Patient states that his symptoms exacerbated over the course of the evening and he returns today. Patient has had 2-3 episodes of nonbloody nonbilious emesis. Patient's last bowel movement was one day ago without blood or mucus. Patient describes his pain as being moderate in nature. It is located in the left lower quadrant. No radiation. He does not note anything that makes the pain any worse. Pain improves with analgesia. Patient was at home when the symptoms began. Symptoms have progressed in a gradual manner since onset. Occurred At: home Onset: Gradual Allergies: Coded Allergies: No Known Allergies (Verified , 06/23/16) Past History Past Medical History ENMT: allergies GI: crohn's, other Surgical History General: appendix, colonoscopy, hernia, other, tonsils Joint: shoulder Family History Family History: Negative Vaccines Hx Influenza Vaccination: Yes (JAN 2012) Hx Pneumococcal Vaccination: Yes (2010) Social History Smoking Status: Never smoker Does patient use chewing tobac: No Second Hand Exposure: No Substance Use Type: does not use Alcohol Intake: none Review of Systems Constitutional Constitutional: DENIES: chills, fever Eyes General: DENIES: erythema, exudate Lids/Accessories: DENIES: erythema, swelling Vision: DENIES: acuity, blurring ENMT Ears: DENIES: drainage, erythema Hearing: DENIES: hearing loss Balance: DENIES: ataxia, falling to one side Sinuses: DENIES: congestion, pain Nose: DENIES: nosebleeds, pain Mouth/Throat: DENIES: painful swallowing, sore throat Teeth: DENIES: pain Jaw: DENIES: pain Cardiovascular Cardiac: DENIES: chest pain, dyspnea on exertion Rhythm/Rate: DENIES: irregular beat, palpitations Vascular: DENIES: pedal edema, unilateral swelling Pulmonary Respiratory: DENIES: cough, dyspnea, pleuritic chest pain, sputum GI Upper Abdomen: nausea, vomiting, DENIES: pain Lower Abdomen: pain, DENIES: blood in stool General: DENIES: dysuria, pain Musculoskeletal General: DENIES: pain, tenderness Integumentary Skin: DENIES: itching, rash Neurological General: DENIES: headache, numbness, weakness Psychiatric Psychiatric: DENIES: emotional instability, suicidal ideation/attempt Endocrine Endocrine: DENIES: polydipsia, polyphagia Hematologic/Lymphatic Hematologic/Lymphatic: DENIES: frequent nosebleeds, lymphadenopathy Allergic/Immunological Allergic/Immunoligical: DENIES: frequent infections, hives Physical Exam General General Nourishment: well nourished, well developed, appears stated age, no acute distress, adult General Body Habitus: well groomed Vitals and Pain First Documented Vital Signs Date Time Temp Pulse Resp B/P Pulse Ox O2 Delivery O2 Flow Rate FiO2 06/23/16 11:28 97.8 79 16 135/72 95 Room Air Weight: Kilograms: 44.000 Height (feet): 5 Height (inches): 6.00 Triage Pain Scale: RN VS reviewed by Provider: Yes Normal Exams: Head: Normocephalic w/o trauma Eyes: Pupils are PERRLA w/ EOMI, No scleral icterus, irritation, or foreign bodies noted ENMT: No facial trauma, nasal exudates, pharyngeal erythema, or exudates are noted Dental: No fractured, loose, or missing teeth noted Neck: Full range of motion, without adenopathy, JVD, bruits or thyromegaly Chest/Resp: Clear all fine, with good airflow, and symmetry bilaterally CV: Regular rate and rhythm, without murmur or gallop, Pulses 2+ all extremities, capillary refill, <2 seconds all ext., no pedal edema noted Abdomen: Bowel sounds positive, non-distended, no hepatosplenomegaly, masses or bruits noted Lymphatic: No lymphadenopathy, or lymphedema noted Musculoskeletal: No tenderness, or deformity noted, good range of motion, all extremities Integumentary: No rashes, hives, or bruising noted, hair and nails, without abnormality Neurologic: Patient is alert, and oriented, cranial nerves, motor/sensory/ cerebellar, exams w/o gross deficits, to observation Psychiatric: Patient exhibits, appropriate attention, emotion and affect Abdomen (brief) Comments Soft. Mild LLQ Tenderness to palpation. No rebound or guarding. No CVAT. Nondistended. BSA x 4. Differential Diagnoses Considering: Bowel Obstruction, Hernia, IBS, Ileus Progress Results/Orders Orders Procedure Category Date Status Time Cbc W/Auto LAB 06/23/16 Complete Diff-Reflex Manual Cmp - Comprehensive LAB 06/23/16 Complete Metabolic Lipase LAB 06/23/16 Complete Ua, Dip Wreflex LAB 06/23/16 Complete Microsc & Rock Crushing Machine Operator 11:56 Iv Lock (Ed Only) EDM 06/23/16 Transmitted 11:56 EKG EKG 06/23/16 Taken Normal Saline (Ns) PHA 06/23/16 Complete 12:30 Morphine Sulfate PHA 06/23/16 Complete (Morphine) 12:30 Ondansetron Inj PHA 06/23/16 Complete (Zofran) 12:30 Ct Abd/Pelvis CT 06/23/16 Resulted W/Contrast Only 12:34 Iohexol (Omnipaque) PHA 06/23/16 Complete 12:54 Normal Saline (Ns) PHA 06/23/16 Complete 12:54 Saline Flush (Iv PHA 06/23/16 Complete Flush) 12:54 C-Reactive Protein - LAB 06/23/16 Complete CRP 14:04 Methylprednisolone PHA 06/23/16 Complete Sod Succ (Solu-Medrol 14:15 Npo Now COREY 06/23/16 In Process 14:04 Npo: Nothing By Mouth DIET 06/23/[address] In Facility: ED ADM 06/23/16 Transmitted 14:04 Lab Results Laboratory Tests Test 06/23/16 12:06 06/23/16 12:11 White Blood Count 9.8T/MM3 Red Blood Count 3.55M/MM3 Hemoglobin 12.7GM/DL Hematocrit 38.1% Mean Corpuscular Volume 107.3UM3 Mean Corpuscular Hemoglobin 35.8UUG Mean Corpuscular Hemoglobin Concent 33.3GM/DL RDW Standard Deviation 50.3FL Platelet Count 211T/MM3 Mean Platelet Volume 9.6UM3 Immature Granulocyte % (Auto) 0.5% Neutrophils (%) (Auto) 78.8% Lymphocytes (%) (Auto) 11.0% Monocytes (%) (Auto) 9.5% Eosinophils (%) (Auto) 0.0% Basophils (%) (Auto) 0.2% Absolute Immature Granulocyte (auto 0.05T/MM3 Absolute Neutrophils (auto) 7.7T/MM3 Absolute Lymphocytes (auto) 1.1T/MM3 Absolute Monocytes (auto) 0.9T/MM3 Absolute Eosinophils (auto) 0.0T/MM3 Absolute Basophils (auto) 0.0T/MM3 Turbidity < 20 Sodium Level 144MEQ/L Potassium Level 4.2MEQ/L Chloride Level 109MEQ/L Carbon Dioxide Level 25MEQ/L Anion Gap 10MEQ/L Blood Urea Nitrogen 27.0MG/DL Creatinine 1.0MG/DL Glomerular Filtration Rate Calc 74 BUN/Creatinine Ratio 27RATIO Glucose Level 109MG/DL Calculated Osmolality 283MOSM/KG Calcium Level 8.9MG/DL Total Bilirubin 0.60MG/DL Icterus Index < 2 Aspartate Amino Transf (AST/SGOT) 22U/L Alanine Aminotransferase (ALT/SGPT) 24U/L Alkaline Phosphatase 62U/L C-Reactive Protein 20.0MG/L Total Protein 6.9G/DL Albumin 3.7G/DL Globulin 3.2G/DL Albumin/Globulin Ratio 1.2RATIO Lipase 127U/L Chemistry Specimen Hemolysis 20 Urine Collection Type Cleancatch-midstream Urine Color Yellow Urine Turbidity Clear Urine pH 5.5 Urine Specific [place] >=1.030 Urine Protein Trace Urine Glucose (UA) Negative Urine Ketones Negative Urine Blood Negative Urine Nitrite Negative Urine Bilirubin Negative Urine Urobilinogen 0.2EU/DL Urine Leukocyte Esterase Negative Urinalysis Comment Microscopic not ind. Medications Current ED Medications Sodium Chloride (NS) 500 ml @ 999 mls/hr Q31M ONCE IV Last administered on 12:31; Start 06/23/16 at 12:30; Stop 06/23/16 at 13:00; Status DC Morphine Sulfate (Morphine) 4 mg O ONCE IV Last administered on 06/23/16 12: 31; Start 06/23/16 at 12:30; Stop 06/23/16 at 12:31; Status DC Ondansetron HCl (Zofran) 4 mg O ONCE IV Last administered on 06/23/16t 12:31; Start 06/23/16 at 12:30; Stop 06/23/16 at 12:31; Status DC Iohexol 1 bottle 1 bottle STK-MED ONCE .ROUTE ; Start 06/23/16 at 12:54; Stop at 12:55; Status DC Sodium Chloride (NS) 100 ml @ As Directed STK-MED ONCE .ROUTE ; Start 06/23/16 at 12:54; Stop 06/23/16 at 12:55; Status DC Sodium Chloride (Iv Flush) 10 ml STK-MED ONCE .ROUTE ; Start 06/23/16 at 12:54; Stop 06/23/16 at 12:55; Status DC Progress Progress Labs/imaging were discussed in detail with the patient and questions are answered. Patient is given IV hydration. Patient is given parental narcotic and antiemetic medications intravenously which improved his symptoms. Patient is made nothing by mouth in the emergency department. He is given Solu-medrol 125 mg IV times one. Patient will be admitted to the service of his primary care physician for further evaluation and treatment. There is no current sign of active infection or indication for antibiotic use. Patient is admitted to the hospital in improved condition. No further orders from consulting or accepting physicians. Patient was originally discussed with Dr. Pompa who is covering for Dr. Chaney. Dr. Pompa recommends medical admission at this time. EKG EKG : Rate: 60-100 Rhythm: sinus [place]: normal QRS: normal Intervals: normal ST/T: normal Interpreted by: signing physician CT CT : CT: Abd/Pelvis IV contrast Interpretation: Abnormal, Reviewed Written Report (high-grade bowel partial bowel obstruction with transition point. No other acute processes other than Crohn's disease. ) DONNIE MELCHOR DO Jun 23, 2016 13:27
--- NOTE | 2016-06-23 13:31 | DI ---
Indication: ITS.REASON: abd pain, hx crohns PROCEDURE: CT ABD/PELVIS W/CONTRAST ONLY: Encounter: Initial Comparison: CT abdomen and pelvis dated April 12, 2016 and May 06, 2012 Technique: Axial CT images were performed through the abdomen and pelvis after the administration of intravenous contrast. Coronal and sagittal two-dimensional reformats. Automated Exposure Control and Iterative Reconstruction dose reducing techniques were utilized. Contrast: Omnipaque 300 67 mL Findings: The lung bases are clear. The liver is stable with a small cyst in the right lobe. Multiple gallstones within the gallbladder. The spleen with accessory splenule, pancreas and adrenal glands are within normal limits. The kidneys are normal. No abdominal or pelvic lymphadenopathy. There is increasing small bowel dilatation with numerous dilated fluid-filled small bowel loops measuring up to 5.5 cm in diameter. The bladder is normal. Prostate and rectum are grossly normal. Colon is unremarkable apart from radiodensities in the cecum probably related to ingested medications. Prior distal small bowel resection noted in the terminal ileum. Thick-walled neoterminal ileum which is relatively decompressed leading into the area of obstruction with the transition point best seen on coronal images 18 through 23 transition from dilated fluid-filled small bowel to thick-walled enhancing small bowel. There was a high-grade partial small bowel obstruction present with a similar transition on the comparison study. There is also a similar appearance on a May 06, 2012 study. No free air. Bone windows are stable. Impression: Worsening area of high-grade partial obstruction in the distal ileum which has been present to some degree for many years with a region of active Crohn's disease involving the neoterminal ileum. .
--- NOTE | 2016-06-23 14:18 | NUR ---
REPORT GIVEN TO NIKOLAI ACOSTA E. NO QUESTIONS NOTED.
--- OUTSIDE RECORDS SUMMARY | 2016-06-23 14:18 | XMS REPORT | Continuity of Care Document ---
Author Author [facility] Organization [facility] Address Unknown Phone Unavailable Allergies [...] Status Pt. Type Provider Facility Loc./Unit Complaint [id number] 05/17/2016 14:31:00 2016 23:59:00 DIS Outpatient Husam Arriaza [facility] F/U - CROHNS [id number] 12/08/2015 13:51:00 2015 23:59:00 DIS Outpatient Tatyana Brower L [facility] 1 WEEK F/U [id number] 11/18/2015 13:58:00 2015 23:59:00 DIS Outpatient Husam Arriaza [facility] demond [id number] 09/24/2015 09:18:00 2015 23:59:00 DIS Outpatient Tariq Benitez [facility] nilson [id number] 06/05/2015 12:45:00 2015 23:59:00 DIS Outpatient Jason Zamora B [facility] B 12 inj [id number] 05/08/2015 13:22:00 2015 23:59:00 DIS Outpatient Deleon, Vasu E [facility] vitamin B 12 inj [id number] 03/06/2015 12:47:00 2014 23:59:00 DIS Outpatient Deleon, Vasu E [facility] Vitamin B 12 inj [id number] 02/06/2015 12:48:00 2014 23:59:00 DIS Outpatient Deleon, Vasu E [facility] Vitamin B 12 inj [id number] 01/02/2015 12:47:00 2014 23:59:00 DIS Outpatient Deleon, Vasu E [facility] vitamin B 12 inj [id number] 12/09/2014 11:44:00 2014 23:59:00 DIS Outpatient Deleon, Vasu E [facility] Vitamin B 12 inj [id number] 11/07/2014 12:49:00 2014 23:59:00 DIS Outpatient Deleon, Vasu E [facility] Vitamin B 12 inj [id number] 11/05/2014 08:53:00 2014 23:59:00 DIS Outpatient Deleon, Vasu E [facility] ABDOMINAL SORENESS [id number] 10/29/2014 14:09:00 2014 23:59:00 DIS Outpatient Deleon, Vasu E [facility] ABDOMINAL PAIN AND DARK STOOLS [id number] 10/01/2014 12:49:00 2014 23:59:00 DIS Outpatient Deleon, Vasu E [facility] Vitamin B 12 inj [id number] 04/25/2014 12:47:00 2014 23:59:00 DIS Outpatient Deleon, Vasu E [facility] Vitamin B 12 inj [id number] 04/23/2014 14:12:00 2014 23:59:59 CLS Outpatient Simon Cassidy [facility] colonoscopy consult [id number] 04/01/2014 14:57:00 2013 23:59:00 DIS Outpatient Deleon, Vasu E [facility] Vitamin B 12 inj [id number] 02/26/2014 12:59:00 2013 23:59:00 DIS Outpatient Deleon, Vasu E [facility] From IDX: VITAMIN B 12 INJ [id number] 05/06/2016 19:12:00 Document Registration [id number] 11/28/2015 05:35:00 Document Registration [id number] 04/10/2015 13:07:00 ACT Outpatient Deleon, Vasu E [facility] Vitamin B 12 inj [id number] 03/17/2015 09:54:00 ACT Outpatient Deleon, Vasu E [facility] 3rd Reclast infusion [id number] 09/05/2014 15:26:00 Document Registration [id number] 08/01/2014 12:52:00 Document Registration [id number] 07/22/2014 12:48:00 Document Registration [id number] 07/04/2014 12:44:00 Document Registration [id number] 05/22/2014 10:03:00 Document Registration [id number] 03/07/2014 15:09:00 Document Registration
--- OUTSIDE RECORDS SUMMARY | 2016-06-23 14:20 | XMS REPORT | Continuity of Care Document ---
Author Author [facility] Organization [facility] Address Unknown Phone Unavailable Support Name Relationship Address Phone JUDITH DALTON MD Caregiver [address] [place] [address] [place] [phone] NINFA ZENG Next Of Kin [address] [place], [place] [id number] Insurance Providers Payer Name Policy Number Subscriber Name Relationship [employer] Other [id number] Ninfa Zeng 01 Spouse Medicare Part A Only [id number] Abimael Zeng 20 Self Problems Medical Problems [...] DAILY 05/30/12 Active Adalimumab 20 Mg SQ [id number] 05/30/12 Active Prednisone 35 Mg PO DAILY [...] H 17.6-36.[address] DALTON [id number] Prothromb Time International Ratio May 06, 2012 [...] Has specimen been collected/obtained? Y Urine Specific [place] December 16, 2012 4:00am 1.015 - Has [...] 20, 2014 8:29pm LAB TEST FORM REQUEST [id number] - Platelet Evaluation (Diff) May 02, 2011 [...] procedures. Encounters Encounter Location Date/Time Registered Clinic [facility] 01/20/14 4:55pm Registered [facility] 01/20/14 4:14pm
--- NOTE | 2016-06-23 14:30 | NUR ---
Admit Patient admitted to Medical Unit room 135 from ED. Alert and oriented x3. Patient answers admit questions appropriately. Admit completed by Lisa ACOSTA, care will be assumed by Meghann ACOSTA.
[2016-06-23 14:36] VITALS: BP 114/69; PULSE 58; RESP 18; TEMP 96.8; O2SAT 94
[2016-06-23 14:40] VITALS: Ht 167.6 cm; Wt 49.7 kg
[2016-06-23 14:57] VITALS: PULSE 58; RESP 18
[2016-06-23] MEDS ORDERED: NORMAL SALINE 1,000 ML IV ONE (15:45)
[2016-06-23] MEDS ORDERED: FENTANYL 100mcg/2ml INJECTION IV ONE ×2 (15:45→17:00)
[2016-06-23] MEDS: NS KCL 20 MEQ 1,000 ML IV SCH (17:07)
--- NOTE | 2016-06-23 18:06 | NUR ---
SHIFT SUMMARY VSS. RA. REPORTING PAIN IN ABDOMEN, MOSTLY RIGHT SIDE. FENTANYL 25 MCG GIVEN X2. THIS HAS HELPED WITH PAIN FOR A FEW HOURS BUT PAIN IS CREEPING BACK UP. NS WITH 20MEQ KCL INFUSING INTO PERIPHERAL. IN ROOM. REMAINS NPO WITH MINIMAL ICE CHIPS PER DR DIA. RN STRESSED THE IMPORTANCE OF NOT EATING TOO MANY ICE CHIPS, PATIENT AND VERBALIZE UNDERSTANDING. BED ALARM IN USE.
--- NOTE | 2016-06-23 18:53 | NUR ---
AMBULATION PATIENT AMBULATED IN HALLWAY, TOLERATED WELL.
[2016-06-23] MEDS: FENTANYL 100mcg/2ml INJECTION IV PRN ×2 (18:54→22:05)
--- NOTE | 2016-06-23 19:00 | HPPDOC ---
HPI - Adult Date DATE: 06/23/16 TIME: 18:40 General Chief Complaint: acute onset of left lower quadrant abdominal pain with nausea and vomiting History of Present Illness Abimael is a very pleasant 70-year-old white male who presented to the emergency department with acute onset of left lower quadrant abdominal pain with nausea and vomiting. He has a known history of Crohn's disease with small bowel resection. He states that he has about 8-10 feet of small bowel remaining. He usually has loose stool secondary to this. He states that he was in his usual level of health until yesterday when at about 2:00 in the afternoon he began to have achy pain in his left lower quadrant. He was able to eat supper last night consisting of scrambled eggs. He went to bed a little early after getting back from the emergency department for this same complaint. At the ER he was given IV narcotics and IV fluids which seemed to improve his condition. He was awakened abruptly at 2:00 last night with sharp left lower quadrant pain again with nausea. Today he presented again to the emergency department and I CAT scan was obtained demonstrating partial small bowel obstruction with evidence of active Crohn's disease. He states at times the pain is severe and gives evidence of rebound tenderness with difficulty walking or any bouncing on his legs causing severe pain in his abdomen. Covering surgical physician for Dr. Chaney was contacted but, according to the ER physician, he didn't think this was a surgical condition and needed to be treated medically. Past Medical History Past Medical History Patient's Medical History: (1) exacerbation of Crohn's (2) Small bowel obstruction Surgical History Patient's Surgical History: 1965 appendectomy 1979 Crohn's disease diagnosed 1984 small bowel obstruction secondary to Crohn's disease 1985 hemorrhoidectomy 1994 small bowel obstruction Right upper rotator cuff repair 1999 Small bowel resection of perforation 2000 hernia repair 2004 and again in 2005 partial bowel obstruction 2007 colonoscopy Tonsillectomy Current Medications Home Meds Active Scripts Prednisone (Prednisone) 20 Mg Tablet, 60 MG PO DAILY, #12 TAB Take 1 tablet, by mouth, 2 times a day with meals. Prov:MADHAVI CHEN MD 06/22/16 Prochlorperazine Maleate (Compazine) 10 Mg Tablet, 10 MG PO QID for n/v/cramps, #30 TAB 0 Refills Prov:MADHAVI CHEN MD 06/22/16 Hydrocodone/Acetaminophen ([place] 5-325 Tablet) 5-325 Tablet, 1 TAB PO Q4-6H Y for PAIN, #20 TAB Prov:THERESE FRITZ APRN 03/20/16 Reported Medications Folic Acid (Folic Acid) 0.4 Mg Tablet, 0.4 MG PO DAILY 06/22/16 Ascorbate Calcium/Bioflavonoid (Liz-C 1,000 mg Tablet) 1 Each Tablet, 500 MG PO DAILY 06/22/16 Prednisone (Prednisone) 5 Mg Tablet, 10 MG PO DAILY 06/22/16 Cyanocobalamin (Cyanocobalamin Injection) 1,000 Mcg/Ml Vial, 1000 MCG INJ Q2WK 06/22/16 Iron (Iron) 18 Mg Tablet, 1 TAB PO DAILY 06/08/16 Aspirin (Aspirin) 325 Mg Tablet, 325 MG PO DAILY 06/08/16 Sulfasalazine (Sulfasalazine) 500 Mg Tablet, 1000 MG PO BID 04/22/16 Calcium Carbonate/Vitamin D3 (Calcium + Vitamin D Tablet) 1 Each Tablet, 1 TAB PO DAILY 04/22/16 Adalimumab (Humira) 40 Mg/0.8 Ml/Kit Syringe, 40 MG INJ WEEKLY 04/22/16 Omeprazole (Omeprazole) 20 Mg Capsule.dr, 20 MG PO ACB 03/20/16 Potassium Chloride (Potassium Chloride) 20 Meq/15 Ml Liquid, 20 MEQ PO DAILY 03/20/16 Azathioprine (Azathioprine) 50 Mg Tablet, 100 MG PO DAILY 05/30/12 Multivitamins (Multivitamin) 1 Tab Tablet, 1 TAB PO DAILY 05/06/12 Allergies: Coded Allergies: No Known Allergies (Verified , 06/23/16) Family History Family History: Patient is adopted. He is and lives at home with his . 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 He stopped smoking years ago when he was diagnosed with Crohn's disease. He did have one child of colon cancer in his 30s Social History Smoking Status: Former smoker Does patient use chewing tobac: No Second Hand Exposure: No Substance Use Type: does not use Alcohol Intake: none Marital Status: Housing: house Household Members: spouse Service: No Current Occupational Status: retired Occupational Hazard: No Advance Directives: No DPOA for Healthcare Only Review of Systems Constitutional: DENIES: chills, fever, night sweats, weakness, weight gain, weight loss Cardiovascular DENIES: chest pain, dyspnea on exertion, orthopnea, paroxysmal nocturnal dysp Rhythm/Rate: DENIES: irregular beat, palpitations, tachycardia Vascular: DENIES: Raynaud's Pulmonary Respiratory: DENIES: cough, dyspnea, pleuritic chest pain, sputum, tachypnea GI Upper Abdomen: nausea, vomiting, DENIES: dysphagia, heartburn/indigestion Lower Abdomen: diarrhea, pain (left lower quadrant), DENIES: blood in stool General: DENIES: burning, dysuria, frequency, hematuria, urgency Male: DENIES: frequency, hesitancy, retention Integumentary Skin: DENIES: color change, itching, rash Neurological General: DENIES: ataxia, change in strength, headache, numbness, tremor Psychiatric Psychiatric: DENIES: anxiety, depression, emotional instability, nervousness Endocrine DENIES: heat/cold intolerance, polydipsia, polyphagia Hematologic/Lymphatic DENIES: bleeding gums, easy bruising, frequent nosebleeds Allergic/Immunological DENIES: frequent infections, hives, sneezing All Other Systems All Other Systems: Reviewed (remainder of 10-point ROS Neg.) Physical Exam General General Nourishment: cachectic, adult General Body Habitus: well groomed Vital Signs Vital Signs Date Time Temp Pulse Resp B/P Pulse Ox O2 Delivery O2 Flow Rate FiO2 06/23/16 18:00 18 06/23/16 14:57 58 06/23/16 14:36 96.8 114/69 94 Room Air Height (Feet): 5 Height (Inches): 6.00 Telemetry Rhythm: Sinus Rhythm Eyes Brief: FOUND: EOMI, PERRL, NOT FOUND: scleral icterus Neck Brief: NOT FOUND: JVD, adenopathy, carotid bruits, thyromegaly Respiratory Brief: NOT FOUND: clear all fine, equal bilaterally, rales, wheezes Cardiovascular (brief) Cardiac Brief: FOUND: regular rate, regular rhythm, NOT FOUND: gallop, murmur, pedal edema Abdomen (brief) Abdominal Brief: FOUND: soft, tender (rebound tenderness with mild guarding), NOT FOUND: BS normo active x4 (high-pitched bowel sounds worsening left lower quadrant), distended, hepatosplenomegaly Lymphatic (brief) Lymphatic Brief: NOT FOUND: adenopathy, lymphedema Musculoskeletal (brief) Musculoskeletal Brief: NOT FOUND: deformity, loss of motion, spasm, tenderness Integumentary (brief) Integumentary Brief: FOUND: dry, pink, warm, NOT FOUND: rash Neurologic (brief) Neurological Brief: FOUND: cranial 2-12 intact, motor, sensory Neurologic RN Documented GCS Eye Opening: Verbal: Motor: Total: Psychiatric (brief) FOUND: alert, attentive, normal affect, oriented Laboratory Laboratory Tests Test 06/23/16 12:06 06/23/16 12:11 White Blood Count 9.8T/MM3 Red Blood Count 3.55M/MM3 Hemoglobin 12.7GM/DL Hematocrit 38.1% Mean Corpuscular Volume 107.3UM3 Mean Corpuscular Hemoglobin 35.8UUG Mean Corpuscular Hemoglobin Concent 33.3GM/DL RDW Standard Deviation 50.3FL Platelet Count 211T/MM3 Mean Platelet Volume 9.6UM3 Immature Granulocyte % (Auto) 0.5% Neutrophils (%) (Auto) 78.8% Lymphocytes (%) (Auto) 11.0% Monocytes (%) (Auto) 9.5% Eosinophils (%) (Auto) 0.0% Basophils (%) (Auto) 0.2% Absolute Immature Granulocyte (auto 0.05T/MM3 Absolute Neutrophils (auto) 7.7T/MM3 Absolute Lymphocytes (auto) 1.1T/MM3 Absolute Monocytes (auto) 0.9T/MM3 Absolute Eosinophils (auto) 0.0T/MM3 Absolute Basophils (auto) 0.0T/MM3 Turbidity < 20 Sodium Level 144MEQ/L Potassium Level 4.2MEQ/L Chloride Level 109MEQ/L Carbon Dioxide Level 25MEQ/L Anion Gap 10MEQ/L Blood Urea Nitrogen 27.0MG/DL Creatinine 1.0MG/DL Glomerular Filtration Rate Calc 74 BUN/Creatinine Ratio 27RATIO Glucose Level 109MG/DL Calculated Osmolality 283MOSM/KG Calcium Level 8.9MG/DL Total Bilirubin 0.60MG/DL Icterus Index < 2 Aspartate Amino Transf (AST/SGOT) 22U/L Alanine Aminotransferase (ALT/SGPT) 24U/L Alkaline Phosphatase 62U/L C-Reactive Protein 20.0MG/L Total Protein 6.9G/DL Albumin 3.7G/DL Globulin 3.2G/DL Albumin/Globulin Ratio 1.2RATIO Lipase 127U/L Chemistry Specimen Hemolysis 20 Urine Collection Type Cleancatch-midstream Urine Color Yellow Urine Turbidity Clear Urine pH 5.5 Urine Specific [place] >=1.030 Urine Protein Trace Urine Glucose (UA) Negative Urine Ketones Negative Urine Blood Negative Urine Nitrite Negative Urine Bilirubin Negative Urine Urobilinogen 0.2EU/DL Urine Leukocyte Esterase Negative Urinalysis Comment Microscopic not ind. Radiology DATE OF EXAM: 06/23/16 ORDERING DOCTOR: DONNIE MELCHOR DO TYPE OF EXAM: CT ABD/PELVIS W/CONTRAST ONLY REASON FOR EXAM: abd pain, hx crohns Indication: ITS.REASON: abd pain, hx crohns PROCEDURE: CT ABD/PELVIS W/CONTRAST ONLY: Encounter: Initial Comparison: CT abdomen and pelvis dated April 12, 2016 and May 06, 2012 Technique: Axial CT images were performed through the abdomen and pelvis after the administration of intravenous contrast. Coronal and sagittal two-dimensional reformats. Automated Exposure Control and Iterative Reconstruction dose reducing techniques were utilized. Contrast: Omnipaque 300 67 mL Findings: The lung bases are clear. The liver is stable with a small cyst in the right lobe. Multiple gallstones within the gallbladder. The spleen with accessory splenule, pancreas and adrenal glands are within normal limits. The kidneys are normal. No abdominal or pelvic lymphadenopathy. There is increasing small bowel dilatation with numerous dilated fluid-filled small bowel loops measuring up to 5.5 cm in diameter. The bladder is normal. Prostate and rectum are grossly normal. Colon is unremarkable apart from radiodensities in the cecum probably related to ingested medications. Prior distal small bowel resection noted in the terminal ileum. Thick-walled neoterminal ileum which is relatively decompressed leading into the area of obstruction with the transition point best seen on coronal images 18 through 23 transition from dilated fluid-filled small bowel to thick-walled enhancing small bowel. There was a high-grade partial small bowel obstruction present with a similar transition on the comparison study. There is also a similar appearance on a May 06, 2012 study. No free air. Bone windows are stable. Impression: Worsening area of high-grade partial obstruction in the distal ileum which has been present to some degree for many years with a region of active Crohn's disease involving the neoterminal ileum. . Assessment & Plan Problems: (1) Small bowel obstruction Status: Acute (2) exacerbation of Crohn's Status: Acute Code Status Full Code Hospital Course Summary Disclaimer The hospital course summary below is not to be considered part of the above Progress Note. Hospital Course Summary Patient is admitted for 23 hour observation. I will give him IV fluid hydration. Also IV narcotic pain medication. He continued bowel rest. He will need a surgical consultation and this will take place with Dr. Shiv smith. I will repeat imaging in the morning as well as CBC, CMP, and lipase, as well as lactate. MADHAVI DIA DO Jun 23, 2016 18:46
[2016-06-23 20:00] VITALS: PULSE 58; RESP 18
[2016-06-23 23:22] VITALS: BP 96/60; PULSE 63; RESP 16; TEMP 97.1; O2SAT 93
[2016-06-24] VITALS (7 sets, daily range): BP systolic 103–157; BP diastolic 58–84; PULSE 56–119; RESP 18–28; TEMP 95.6–97.1; O2SAT 91–98
[2016-06-24] MEDS: FENTANYL 100mcg/2ml INJECTION IV PRN ×5 (02:14→16:45)
--- NOTE | 2016-06-24 03:13 | NUR ---
SHIFT SUMMARY PT A/O X 3, COOPERATIVE AND PLEASANT WITH CARES STAFF PROVIDES. PT CALLS FOR SBA TO THE BATHROOM. FENTANYL 25 MCG GIVEN PER ORDER FOR ABD DISCOMFORT. PT STATES THE PAIN IS MOSTLY TO HIS LEFT MID ABD AREA. DENIES IT MOVING OR CHANGING. PT WAS ABLE TO SLEEP AFTER 2210 OF FENTANYL MEDICATION WAS GIVEN. PLAN OF CARE REVIEWED WITH PT TO CALLS WHEN THERE IS A INCREASE OF PAIN. PT DIDN'T EAT ICE CHIPS PROVIDED BY DAY NURSE. DENIED WANTING MORE AT THIS TIME, REMAINS NPO. NOTED GOOD BS X 4 QUADS. PT AWAKE AT 0200 REQUESTING PAIN MEDICATION. PT UP WALKED IN THE MIN TO IRU UNIT AROUND THROUGH THE SURGERY UNIT BACK TO HIS ROOM. STATES IT FELT GOOD TO WALK AND TO BE OUT OF BED.
[2016-06-24] MEDS: NS KCL 20 MEQ 1,000 ML IV SCH ×2 (03:36→16:11)
[2016-06-24 05:30] LABS: LACTATE - LACTIC ACID 1.2 MMOL/L (0.6-2.2)
[2016-06-24 05:32] LABS: HCT - HEMATOCRIT 33.7 % (41-53); HGB - HEMOGLOBIN 10.9 GM/DL (13.5-17.5); MEAN CORPUSCULAR HGB 35.6 UUG (26-34); MEAN CORPUSCULAR HGB CONC(MCHC 32.3 GM/DL (31-37); MEAN CORPUSCULAR VOLUME 110.1 UM3 (80-100); MEAN PLATELET VOLUME 9.9 UM3 (9.4-12.4); RED BLOOD COUNT 3.06 M/MM3 (4.50-5.90); WBC - WHITE BLOOD COUNT 7.5 T/MM3 (4.5-11.0)
[2016-06-24 05:37] LABS: ALBUMIN 2.9 G/DL (3.5-5.0); ALKALINE PHOSPHATASE 53 U/L (38-126); ALT (SGPT) 26 U/L (21-72); ANION GAP 7 MEQ/L (5-15); AST (SGOT) 16 U/L (17-59); BUN/CREATININE RATIO 18 RATIO (6-26); CALCIUM 7.5 MG/DL (8.4-10.2); CHLORIDE 110 MEQ/L (98-107); CO2 - CARBON DIOXIDE 25 MEQ/L (22-30); GLOMERULAR FILTRATION RATE 74; GLUCOSE 122 MG/DL (75-110); LIPASE 68 U/L (23-300); POTASSIUM 4.5 MEQ/L (3.6-5); SODIUM 142 MEQ/L (134-144); TOTAL PROTEIN 5.7 G/DL (6.3-8.2)
[2016-06-24 06:21] LABS: ANISOCYTOSIS 1+; BAND NEUTROPHILS # 2.2 T/MM3; LYMPHOCYTES # (MANUAL) 0.9 T/MM3 (1-4.8); MONOCYTES # (MANUAL) 0.2 T/MM3 (0-0.8); NEUTROPHILS #(MANUAL)-ABSOLUTE 4.3 T/MM3 (1.8-7.7); TOTAL CELLS COUNTED 100 %
--- NOTE | 2016-06-24 08:06 | DI ---
Indication: ITS.REASON: SBO, Crohn's, LLQ pain PROCEDURE: KUB W/UPRIGHT: Encounter: Initial Comparison: June 22, 2016 Findings: Bowel gas pattern is similar to the comparison. No free air identified. Lung bases are clear. Densities noted in the right colon. Small air-fluid levels present. Scattered colonic gas is noted. Impression: Radiographically the bowel gas pattern is nonobstructive. .
--- NOTE | 2016-06-24 08:45 | NUR ---
AMBULATION PATIENT AMBULATED FOR 5 MINUTES IN HALLWAY, DID VERY WELL. AMBULATION HELPS WITH HIS PAIN.
[2016-06-24] MEDS ORDERED: METRONIDAZOLE IVPB 500 MG in NORMAL SALINE 100 ML IV SCH (09:00)
--- NOTE | 2016-06-24 11:05 | NUR ---
AMADO FISCHER VISITED PT. CM EXPLAINED ROLE AND PROVIDED CONTACT INFORMATION. PT PLANS TO RETURN HOME TO [facility] D[facility]C FROM [facility]. PT DENIES NEEDS. PT IS AWARE TO CONTACT CM IF NEEDS ARISE.
[2016-06-24] MEDS ORDERED: PNEUMOCOCCAL 13 VACCINE 0.5 ML SYRINGE IM ONE (11:15)
--- NOTE | 2016-06-24 11:15 | NUR ---
SUDDEN ONSET OF SEVERE PAIN RN HAD ADMINISTERED 25MCG FENT 15 MIN AGO FOR THE NORMAL ABDOMINAL PAIN WHEN PATIENT BEGAN CALLING OUT FOR HELP AND MOANING IN AGONIZING PAIN. PATIENT SAID, "I FELT SOMETHING AROUND MY GROIN AREA RIP AND THEN IT WAS EXTREMELY PAINFUL." RN PALPATED GROIN AND PUBIC AREA. PATIENT REPORTED MOST OF THE PAIN WITH PALPATION ON THE MIDDLE TO RIGHT SIDE OF PUBIC AREA. VSS WERE CHECKED AND BP AND HR BOTH ELEVATED. DR DIA WAS PAGED AND HE RETURNED THE CALL NEARLY IMMEDIATELY. UPDATE WAS GIVEN. ONE TIME ORDER RECEIVED FOR 50MCG OF FENTANYL NOW AND FLATPLATE AND UPRIGHT IMAGES. RN CALLED IMAGING AND THEY CAME RIGHT AWAY. IMAGING TOLD RN THAT KUB WITH UPRIGHT IS ALSO A FLATPLATE AND UPRIGHT.
[2016-06-24] MEDS ORDERED: FENTANYL 100mcg/2ml INJECTION IV ONE ×4 (11:30→16:30)
--- NOTE | 2016-06-24 12:01 | DI ---
Indication: ITS.REASON: SUDDEN ONSET OF PAIN PROCEDURE: KUB W/UPRIGHT: Encounter: Initial Comparison: KUB from earlier today Findings: The visualized lung bases are clear. No free air identified. Increasing dilatation of bowel loops in the right lower quadrant measuring up to 3.7 cm in diameter, probably small bowel. Scattered colonic gas is present. Impression: Increasing small bowel dilatation could be due to worsening obstruction. .
--- NOTE | 2016-06-24 12:10 | NUR ---
DR UPDATED DR DIA UPDATED ON RESULT OF KUB. RECEIVED ORDERS FOR ZOFRAN AND PHENERGAN IF NEEDED FOR NAUSEA. NO FURTHER ICE CHIPS ALLOWED.
--- NOTE | 2016-06-24 12:14 | NUR ---
Nutrition Risk R/T adult BMI < 18.6 Diet Order: NPO Weight: 49.7 kg BMI 17.7 Pt here D/T small bowel obstruction with active crohns. H&P indicates pt has a hx of small bowel resection 4X since initial surgery in 1984. Pt reports 5 or more years ago he weighed ~121lbs. Pt states more recent years his weight has stayed between 116-119 lbs. Pt reports he does not think he has lost any weight. Pt states "I think I weighed in at 119lbs". Pt states he has not noticed any change in his muscle mass. Pt states "I've always had weak muscles". Pt reports appetite had been good up until the episode that brought him to the hospital with vomiting. Pt's admission weight is ~7-10 lbs less than pt's reported usual weight. With pt's low BMI and current bowel obstruction pt may benefit from parenteral nutrition until po intake is possible. RD available at ext [phone]
[2016-06-24] MEDS ORDERED: ONDANSETRON 4mg/2ml INJECTION IV PRN (12:15)
[2016-06-24] MEDS ORDERED: PROMETHAZINE 25 MG INJECTION IV PRN (12:15)
--- NOTE | 2016-06-24 13:51 | NUR ---
SEVERE PAIN/DR NOTIFIED DR JAUREGUI PAGED 2 TIMES SINCE 131. CALL RETURNED [phone]. UPDATED DR DIA ON PATIENT'S UNCONTROLLED PAIN AND EPIGASTRIC BULGE. ORDER TO CONSULT DR RAMOS BUT HE IS NOT TAKING CONSULT THIS WEEKEND BECAUSE HE IS OUT, CONSULTED DR BRITT INSTEAD, WAS INFORMED THAT HE WAS IN THE MIDDLE OF A PROCEDURE AND WOULD NOT BE ABLE TO SEE THE PATIENT FOR CLOSE TO ONE HOUR. UPDATED THE PT AND HIS .
[2016-06-24] MEDS ORDERED: LIDOCAINE JELLY 2% 20ml UROJET MM ONE (14:45)
--- NOTE | 2016-06-24 15:16 | NUR ---
STATUS DR BRITT UNABLE TO SEE THE PATIENT UNTIL THIS EVENING. FAMILY UPDATED AND WOULD LIKE TO TRANSFER TO [place]. DR DIA MADE AWARE AND HE AWAITING A CALL BACK FROM A POSSIBLE ACCEPTING SURGEON. FAMILY UPDATED. DR DIA HAS ORDERED SEVERAL ONE TIME DOSE OF 50MCG OF FENT TO BE GIVEN IN THE MEANTIME. VSS. FENTANYL SEEMS TO TAKE THE EDGE OFF OF THE PAIN.
--- NOTE | 2016-06-24 15:45 | NUR ---
TRANSFER STATUS DR DIA TALKED TO DR SHARMA WHO WILL BE ACCEPTING PT. CURRENTLY IN PROCESS OF OBTAINING BED. FAMILY UPDATED.
--- NOTE | 2016-06-24 16:40 | NUR ---
[facility] TRANSPORT CALLED
--- NOTE | 2016-06-24 17:00 | NUR ---
TRANSFER TO [facility] TRANSPORTED BY [facility]. PT TACHYCARDIC IN ONE-TEENS BUT OTHERWISE, VSS. 25MCG OF FENTANYL GIVEN IN PREPARATION FOR TRANSPORT, SEE [facility]. FAMILY PRESENT FOR TRANSFER. PAPERWORK SENT WITH EMS CREW.
--- NOTE | 2016-06-24 17:09 | DSPDOC ---
Discharge Diagnoses Discharge Diagnoses (1) Small bowel obstruction (2) exacerbation of Crohn's Hospital Course Patient is admitted for 23 hour observation. I will give him IV fluid hydration. Also IV narcotic pain medication. He continued bowel rest. He will need a surgical consultation and this will take place with Dr. Shiv smith. I will repeat imaging in the morning as well as CBC, CMP, and lipase, as well as lactate. 06/24/16: Pt symptomatically worse today needing multiple doses of fentanyl. Surgical consult attempted ([facility] not taking consults today, [facility] refused yesterday). I spoke with his GI Dr. Arriaza. He reviewed his recent CT demonstrating three areas of stricture with areas of bowel dilitation. I contacted Dr. Dominguez and he graciously accepted transfer to [facility] after [facility] refused to accept a bowel obstruction case deferring to surgeon. Home Meds Active Scripts Prednisone (Prednisone) 20 Mg Tablet, 60 MG PO DAILY, #12 TAB Take 1 tablet, by mouth, 2 times a day with meals. Prov:MADHAVI CHEN MD 06/22/16 Prochlorperazine Maleate (Compazine) 10 Mg Tablet, 10 MG PO QID for n/v/cramps, #30 TAB 0 Refills Prov:MADHAVI CHEN MD 06/22/16 Hydrocodone/Acetaminophen ([place] 5-325 Tablet) 5-325 Tablet, 1 TAB PO Q4-6H Y for PAIN, #20 TAB Prov:THERESE FRITZ APRN 03/20/16 Reported Medications Folic Acid (Folic Acid) 0.4 Mg Tablet, 0.4 MG PO DAILY 06/22/16 Ascorbate Calcium/Bioflavonoid (Liz-C 1,000 mg Tablet) 1 Each Tablet, 500 MG PO DAILY 06/22/16 Prednisone (Prednisone) 5 Mg Tablet, 10 MG PO DAILY 06/22/16 Cyanocobalamin (Cyanocobalamin Injection) 1,000 Mcg/Ml Vial, 1000 MCG INJ Q2WK 06/22/16 Iron (Iron) 18 Mg Tablet, 1 TAB PO DAILY 06/08/16 Aspirin (Aspirin) 325 Mg Tablet, 325 MG PO DAILY 06/08/16 Sulfasalazine (Sulfasalazine) 500 Mg Tablet, 1000 MG PO BID 04/22/16 Calcium Carbonate/Vitamin D3 (Calcium + Vitamin D Tablet) 1 Each Tablet, 1 TAB PO DAILY 04/22/16 Adalimumab (Humira) 40 Mg/0.8 Ml/Kit Syringe, 40 MG INJ WEEKLY 04/22/16 Omeprazole (Omeprazole) 20 Mg Capsule.dr, 20 MG PO ACB 03/20/16 Potassium Chloride (Potassium Chloride) 20 Meq/15 Ml Liquid, 20 MEQ PO DAILY 03/20/16 Azathioprine (Azathioprine) 50 Mg Tablet, 100 MG PO DAILY 05/30/12 Multivitamins (Multivitamin) 1 Tab Tablet, 1 TAB PO DAILY 05/06/12 Discharge Disposition Transferred to [place] under the care of Dr. Dominguez (colorectal surgeon) Copies To 1: MADHAVI DIA DO Follow up Condition at time of discharge: Serious MADHAVI DIA DO Jun 24, 2016 17:08
== END 2016-06-24 17:00 | disposition short-term general hospital (02) | DRG 386 ==
LOC: ED 11:25 → EDHOLD 14:05 → MED 14:29 → OBSVTOIN 06-24 14:02
PROVIDERS: ADMIT Internal Medicine; ATTEND Internal Medicine
DX: K50.912 Crohn's disease, unspecified, with intestinal obstruction (principal); Z79.899 Other long term (current) drug therapy; Z79.52 Long term (current) use of systemic steroids; Z79.82 Long term (current) use of aspirin
CPT/HCPCS: 36415; 80053; 81003; 83605; 83690; 85007; 85025; 85027; 86140; 93005; 96361; 96374; 96375; 96376; 99218